=== PATIENT | female | born 2000 | race Caucasian/White ===

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

== ENCOUNTER 2024-08-02 13:34 | Outpatient (CLI) | payer BC, SELFPAY ==
--- NOTE | ~2024-08-02 | US_ITS ---
Right maxillary ULTRASOUND (Doppler ultrasound interrogation techniques used as needed for this exam. ) Ordering provider: Melanie Hilton, [employer] History: . Mass of R axilla . Comparison: None. FINDINGS/impression: Lymph node is seen in the right axilla measuring 0.6 x 0.3 x 0.4 cm. Reviewed, dictated and finalized at location A.
== END 2024-08-02 13:35 | disposition home or self-care (01) ==
LOC: MICIMG 13:37
PROVIDERS: PCP Nurse Practitioner; Visit Provider Nurse Practitioner
DX: R22.31 Localized swelling, mass and lump, right upper limb (principal)
CPT/HCPCS: 76882

== ENCOUNTER 2025-02-17 12:07 | Emergency (ER) | payer BC, SELFPAY ==
[2025-02-17] VITALS (12 sets, daily range): BP systolic 106–116; BP diastolic 69–76; PULSE 93–124; RESP 12–22; TEMP 36.4; O2SAT 99–100
--- NOTE | ~2025-02-17 | XR_ITS ---
Examination: XR chest 2V Clinical History: cp, sob, dizziness Comparison: None Technique: PA and Lateral Findings: Cardiomediastinal silhouette normal size and configuration. Lungs clear. No acute bony abnormality. IMPRESSION: 1. No acute cardiopulmonary findings. Reviewed, dictated and finalized at location R. [facility]
--- OUTSIDE RECORDS SUMMARY | 2025-02-17 12:10 | XMS_ITS | Continuity of Care Document ---
Author Organization [facility] [address] [place] [address] Care Team Providers Care Powder Coater Name Role Phone KURT LEI Primary Care Provider Assessment No assessment recorded. Plan of Treatment Reminders Order Date Submit Date Provider Last Modified By Organization Details Last Modified Time Details Appointments OB ROUTINE 2024 04:30P Evelyn PÉREZ MD Not available Not available Not available OB ROUTINE 2024 02:00P Evelyn BUNDY MD Not available Not available Not available OB ROUTINE 2025 04:15P Evelyn BUNDY MD Not available Not available Not available Lab None recorded . Referral None recorded . Procedures None recorded . Surgeries None recorded . Imaging None recorded . Medication Orders None recorded . Patient TargetsNo targets recorded. Patient InstructionsNo instructions recorded. Reason for Referral None Reported. Results Created Date Observation Date Name Description Value Unit Range Abnormal Flag Note LastModifiedBy Organization Detail LastModifiedTime 10/02/1910/01/2024 CULTU RE: URINE result report SEE RESULT S BELOW Test: Cultu re: Urine Speci men Sourc e: Urine - Clean Catch Speci men Type: Urine Speci men Date: 2024 1653 Resul t Date: 2024 2241 Resul t Statu s: Final resul t Abnor mal: No Resul ting Lab: [facility] [address] [facility] [address] Tel: CULTU RE ----- ----- ----- --- No growt h in 1 day (dete ction level of 10,00 0 colon ies / ml.) Not Available [facility] (Lab) [address], [place], [address], 10/02/2024 23:45:23 10/02/19 25 10/01/2024 drug scree n, urine Amphetamines : negati ve Not Available [facility] [address], [place], [address], 10/01/2024 18:02:01 10/02/19 25 10/01/2024 drug scree n, urine Cannabinoids : negati ve Not Available [facility] [address], [place], [address], 10/01/2024 18:02:01 10/02/19 25 10/01/2024 drug scree n, urine Cocaine: negati ve Not Available [facility] [address], [place], [address], 10/01/2024 18:02:01 10/02/19 25 10/01/2024 drug scree n, urine Opiates: negati ve Not Available [facility] [address], [place], [address], 10/01/2024 18:02:01 10/02/19 25 10/01/2024 drug scree n, urine Phenocyclidi ne: negati ve Not Available [facility] [address], [place], [address], 10/01/2024 18:02:01 10/02/19 25 10/01/2024 drug scree n, urine Barbiturates : negati ve Not Available [facility] [address], [place], [address], 10/01/2024 18:02:01 10/02/19 25 10/01/2024 drug scree n, urine Benzodiazepi harvinder: negati ve Not Available [facility] [address], [place], [address], 10/01/2024 18:02:01 10/02/19 25 10/01/2024 drug scree n, urine Ethanol: negati ve Not Available [facility] [address], [place], [address], 10/01/2024 18:02:01 10/02/19 25 10/01/2024 drug scree n, urine Hallucinogen s: negati ve Not Available [facility] [address], [place], [address], 10/01/2024 18:02:01 10/02/19 25 10/01/2024 drug scree n, urine Inhalants: negati ve Not Available [facility] [address], [place], [address], 10/01/2024 18:02:01 10/02/19 25 10/01/2024 drug scree n, urine Anabolic Steroids: negati ve Not Available [facility] [address], [place], [address], 10/01/2024 18:02:01 10/02/19 25 10/01/2024 drug scree n, urine Other: negati ve Not Available [facility] [address], [place], [address], 10/01/2024 18:02:01 11/15/19 25 11/14/2024 CBC W/DIF F WBC 8.8 10'3/ uL 3.5-10 .5 Not Available [facility] (Lab) [address], [place], [address], 11/15/2024 09:55:48 11/15/1911/14/2024 CBC W/DIF F RBC 3.26 10'6/ uL (based on docume nted legal sex) 3.80-5 .20 low Not Available [facility] (Lab) [address] [place], [address], 11/15/2024 09:55:48 11/15/1911/14/2024 CBC W/DIF F HGB 10.2 g/dL (based on docume nted legal sex) 11.6-1 5.4 low Not Available [facility] (Lab) [address] [facility], [place], [address], 11/15/2024 09:55:48 11/15/1911/14/2024 CBC W/DIF F HCT 31.0 % (based on docume nted legal sex) 34.0-4 5.0 low Not Available [facility] (Lab) [address], [place], [address], 11/15/2024 09:55:48 11/15/1911/14/2024 CBC W/DIF F MCV 95.1 fL 80.0-9 9.0 Not Available [facility] (Lab) [address] [facility], [place], [address], 11/15/2024 09:55:48 11/15/1911/14/2024 CBC W/DIF F MCH 31.3 pg 27.0-3 4.0 Not Available [facility] (Lab) [address], [place], [address], 11/15/2024 09:55:48 11/15/1911/14/2024 CBC W/DIF F MCHC 32.9 g/dL 32.0-3 5.5 Not Available [facility] (Lab) [address] [facility], [place], [address], 11/15/2024 09:55:48 11/15/1911/14/2024 CBC W/DIF F RDW 13.2 % 11.0-1 5.0 Not Available [facility] (Lab) [address] [facility], [place], [address], 11/15/2024 09:55:48 11/15/1911/14/2024 CBC W/DIF F plt 261 10'3/ uL 150-40 0 Not Available [facility] (Lab) [address], [place], [address], 11/15/2024 09:55:48 11/15/1911/14/2024 CBC W/DIF F MPV 11.6 fL 8.8-12 .1 Not Available [facility] (Lab) [address], [place], [address], 11/15/2024 09:55:48 11/15/1911/14/2024 CBC W/DIF F NRBC's 0.0 % 0.0 Not Available [facility] (Lab) [address], [place], [address], 11/15/2024 09:55:48 11/15/1911/14/2024 CBC W/DIF F absolute NRBCs 0.0 10'3/ uL no refere nce range establ ished Not Available [facility] (Lab) [address], [place], [address], 11/15/2024 09:55:48 11/15/1911/14/2024 CBC W/DIF F neutrophils 79.2 % 34.0-7 3.0 high Not Available [facility] (Lab) [address], [place], [address], 11/15/2024 09:55:48 11/15/1911/14/2024 CBC W/DIF F lymphocytes 13.4 % 15.0-5 0.0 low Not Available [facility] (Lab) [address], [place], [address], 11/15/2024 09:55:48 11/15/1911/14/2024 CBC W/DIF F monocytes 5.9 % 1.0-15 .0 Not Available [facility] (Lab) [address], [place], [address], 11/15/2024 09:55:48 11/15/19 25 11/14/2024 CBC W/DIF F eosinophils 0.9 % 0.0-8. 0 Not Available [facility] (Lab) [address], [place], [address], 11/15/2024 09:55:48 11/15/19 25 11/14/2024 CBC W/DIF F basophils 0.3 % 0.0-2. 0 Not Available [facility] (Lab) [address], [place], [address], 11/15/2024 09:55:48 11/15/1911/14/2024 CBC W/DIF F immature granulocytes 0.3 % no define d refere nce range Immat ure Granu locyt es (IG) repre sents autom ated enume ratio n of Metam yeloc ytes, Myelo cytes and Promy elocy sendy when IG is < 5%. Blast s are not inclu ded in IG and repor henry separ ately if prese nt. Not Available [facility] (Lab) [address], [place], [address], 11/15/2024 09:55:48 11/15/19 25 11/14/2024 CBC W/DIF F absolute neutrophils 7.0 10'3/ uL 1.5-8. 0 Not Available [facility] (Lab) [address], [place], [address], 11/15/2024 09:55:48 11/15/1911/14/2024 CBC W/DIF F absolute lymphocytes 1.2 10'3/ uL 1.0-4. 0 Not Available [facility] (Lab) [address] [place], [address], 11/15/2024 09:55:48 11/15/19 25 11/14/2024 CBC W/DIF F absolute monocytes 0.5 10'3/ uL 0.2-1. 0 Not Available [facility] (Lab) [address], [place], [address], 11/15/2024 09:55:48 11/15/1911/14/2024 CBC W/DIF F absolute eosinophils 0.1 10'3/ uL 0.0-0. 6 Not Available [facility] (Lab) [address] [facility], [place], [address], 11/15/2024 09:55:48 11/15/1911/14/2024 CBC W/DIF F absolute basophils 0.0 10'3/ uL 0.0-0. 3 Not Available [facility] (Lab) [address] [facility], [place], [address], 11/15/2024 09:55:48 11/15/1911/14/2024 CBC W/DIF F absolute immature granulocytes 0.0 10'3/ uL 0.00-0 .10 Refer ence range s for nonbi nary/ inter sex or unspe cifie d gende r patie nts have not been estab lishe d. Pleas e refer to the follo wing table for range s estab lishe d for cisge nder patie nts and evalu ate in the clini mildred xavier xt of the indiv idual patie nt: https ://mary kay foster book. nm.or g/gen derx Not Available [facility] (Lab) [address] [facility], [place], [address], 11/15/2024 09:55:48 11/15/1911/14/2024 HEPAT ITIS B SURFA CE ANTIG EN hepatitis B surface antigen Non-re active non-re active This assay was perfo rmed using [employer] ratio n reage nts and test kits. Value s obtai christine with other assay metho ds or kits canno t be used inter laughlin eably . Not Available [facility] (Lab) [address] [facility], [place], [address], 11/15/2024 09:55:48 11/15/1911/14/2024 HIV 1/2 ANTIG EN/AN TIBOD Y, REFLE X CONFI RMATI ON HIV antigen/anti body Nonrea ctive nonrea ctive HIV-1 antig en and HIV-1 /HIV- 2 antib odies were not detec henry. No labor atory evide nce of HIV infec tion. Not Available [facility] (Lab) [address] [facility], [place], [address], 11/15/2024 09:55:49 11/15/1911/14/2024 HEPAT ITIS C ANTIB MARGARITA SCREE N, REFLE X TO CONFI RMATI ON hepatitis C antibody Non-re active non-re active Antib odies to HCV Not Detec henry, does not exclu de the possi bilit y of expos ure to HCV. Not Available [facility] (Lab) [address] [facility], [place], [address], 11/15/2024 09:55:49 11/15/1911/14/2024 RUBEL LA IGG ANTIB MARGARITA, QUANT rubella antibodies, IgG Reacti ve reacti ve Not Available [facility] (Lab) [address] [facility], [place], [address], 11/15/2024 09:55:50 11/15/1911/14/2024 RUBEL LA IGG ANTIB MARGARITA, QUANT rubella antibodies, IgG quant 17.5 IU/mL >=10 Non-r eacti ve (Non- Immun e) <10 IU/mL React pat (Immu ne) > or = 10 IU/mL Not Available [facility] (Lab) [address] [place], [address], 11/15/2024 09:55:50 11/15/1911/14/2024 HEMOG LOBIN A1C hemoglobin A1C 5.0 % 4.0-5. 6 The Ameri can Diabe sendy [employer]oc iatio n recom mends that a prima ry goal of thera kenneth mart be a HBA1C of < 7% and that physi ciajenniffer talbert d reeva luate the treat ment regim en in patie nts with HBA1C value s consi stent ly > 8%. <5.7% Luann l 5.7 - 6.4% Incre ased risk for diabe sendy >=6.5 % Diagn ostic of diabe sendy <7.0% Goal of thera py >8.0% Actio n sugge sted Not Available [facility] (Lab) [address] [facility], [place], [address], 11/15/2024 09:55:50 11/15/19 25 11/14/2024 TYPE/ RH/SC REEN ABO/Rh type A NEG Not Available [facility] (Lab) [address] [facility], [place], [address], 11/15/2024 09:55:50 11/15/1911/14/2024 TYPE/ RH/SC REEN antibody screen NEG Not Available [facility] (Lab) [address] [facility], [place], [address], 11/15/2024 09:55:50 11/15/19 25 11/14/2024 TYPE/ RH/SC REEN exp date 2024 23:59 Not Available [facility] (Lab) [address] [facility], [place], [address], 11/15/2024 09:55:50 11/15/19 25 11/14/2024 RPR SCREE N, REFLE X TITER /CONF IRMAT ION RPR qualitative Nonrea ctive nonrea ctive Not Available [facility] (Lab) [address] [facility], [place], [address], 11/15/2024 09:55:51 02/07/20 25 02/06/2025 MILTON TIN / IRON / TRANS MILTON N / TIBC iron 99 ug/dL 40-170 Not Available [facility] (Lab) [address] [facility], [place], [address], 02/07/2025 04:27:48 02/07/20 25 02/06/2025 MILTON TIN / IRON / TRANS MILTON N / TIBC transferrin 345 mg/dL 200-36 0 Not Available [facility] (Lab) [address] [facility], [place], [address], 02/07/2025 04:27:48 02/07/20 25 02/06/2025 MILTON TIN / IRON / TRANS MILTON N / TIBC ferritin 12.6 NG/mL 8.0-25 2.0 Not Available [facility] (Lab) [address] [facility], [place], [address], 02/07/2025 04:27:48 02/07/20 25 02/06/2025 MILTON TIN / IRON / TRANS MILTON N / TIBC TIBC 483 ug/dL 250-45 0 high Not Available [facility] (Lab) [address] [facility], [place], [address], 02/07/2025 04:27:48 02/07/20 25 02/06/2025 MILTON TIN / IRON / TRANS MILTON N / TIBC iron saturation 20 % 20-55 Not Available [facility] (Lab) [address] [place], [address], 02/07/2025 04:27:48 10/02/19 25 10/02/2024 US, obste tric, nucha l trans lucen cy No observ ation record ed. [email or web address] [facility] [address], [place], [address], 10/02/2024 13:10:46 10/02/19 25 10/02/2024 US, obstnella tric, 1st trime ster No observ ation record ed. [email or web address] [facility] [address], [place], [address], 10/02/2024 13:10:55 10/02/19 25 10/01/2024 US, obste tric, nucha l trans lucen cy No observ ation record ed. Marly [address], [place], [address], 10/05/2024 09:46:48 11/27/1911/26/2024 US, obste tric, 2nd or 3rd trime ster No observ ation record ed. [email or web address] [facility] [address], [place], [address], 11/26/2024 18:13:04 11/27/19 25 11/26/2024 US, obste tric, 2nd or 3rd trime ster No observ ation record ed. [email or web address] [address], [place], [address], 11/26/2024 18:15:16 11/27/19 25 11/26/2024 US, obste tric, 2nd or 3rd trime ster No observ ation record ed. [email or web address] [address] [address], [place], [address], 11/27/2024 21:27:34 12/25/19 25 12/24/2024 US, obste tric, follo w-up No observ ation record ed. [email or web address] [facility] [address], [place], [address], 12/24/2024 12:42:38 12/25/19 25 12/24/2024 US, obste tric, follo w-up No observ ation record ed. [email or web address] [address] [address], [place], [address], 12/25/2024 12:27:01 Result Notes None recorded. Problems Name Problem SNOMED Code Status Onset Date Resolution Date Notes Provider Name and Address Organization Details Recorded Time 27881380 Active 2024 DAYRON dejesus [place] - [facility] 17:34:37 Congenita l pyloric stenosis 256199127 Active 2024 s/p repair KIRAN BUNDY MD [address], [place], [address], [facility] 17:52:32 Problem Notes None recorded. Procedures Surgical History Date Name Laterality Status Provider Name and Address Organization Details Recorded Time 10/18/19 24 Date of Last Pap Smear completed DAYRON Calles [facility] 10/01/2024 17:34:02 03/14/19 15 Orthopedic Surgery completed Zoya Ward [facility] 10/13/2023 09:42:07 03/14/19 09 Tonsillectomy completed Zoya Ward [facility] 10/13/2023 09:42:00 10/13/19 03 dilation of pyloric stricture completed LENNY Butt [address], [place], [address], [facility] 10/13/2023 10:02:07 Imaging Results None recorded. Procedure Notes None recorded. Medical Equipment None Reported. Allergies Allergen ID Allergen Name Allergen Category Reaction Reaction Severity Criticality Documentation Date Start Date Code Code System Note Provider Name and Address Organization Details Recorded Time 78026 cat's claw preparati on medicatio n eye redness mild Not available 08/01/2024 39902 3 RxNorm Phoebe dejesus [facility] 09:15:09 Medications Name Sig Start Date Stop Date Status Note LastModified by Organization Details LastModified Time ondansetron 4 mg disintegrati ng tablet Place 1 tablet every 6 hours by translingua l route as needed. 2024 active Not Available Not Available Not Avai lable ferrous sulfate active Not Available Not Available Not Available + DHA active Not Available Not Available Not Available Vitals Date Recorded Body height Body mass index (BMI) Body weight Systolic And Diastolic Provider Name and Address Organization Details Last Updated DateTime 02/06/2025 157.48 cm 33.1 kg/m2 12345.22 g 100/69 mm[Hg] Donna Hopkins [facility] 02/06/2025 10:43:52 Social History Question Answer Notes LastModified by Organizat ion Details LastModified Time Tobacco Smoking Status Never Smoker Phoebe Meyers [facility] 08/01/2024 09:18:14 Do You Have An Advance Directive? No Information n ot available 08/01/2024 Are You Blind Or Do You Have Difficulty Seeing? No Information n ot available 10/13/2023 What Is Your Level Of Caffeine Consumption? Occasional [email or web address] Information not available 09/03/2024 How Much Tobacco Do You Chew? None [email or web address] Information not available 10/13/2023 In The 14 Days Before Symptom Onset, Have You Had Close Contact With A Laboratory-confirm ed COVID-19 While That Case Was Ill? No [email or web address] Information n ot available 10/13/2023 In The 14 Days Before Symptom Onset, Have You Had Close Contact With A Person Who Is Under Investigation For COVID-19 While That Person Was Ill? No [email or web address] Information not available 10/13/2023 Have You Been To An Area Known To Be High Risk For COVID-19? No [email or web address] Information not available 10/13/2023 Are You Deaf Or Do You Have Serious Difficulty Hearing? No [email or web address] Information not available 10/13/2023 What Type Of Diet Are You Following? REGULAR Information n ot available 10/13/2023 What Is The Highest Grade Or Level Of School You Have Completed Or The Highest Degree You Have Received? [id number] [email or web address] Information not available 08/01/2024 Are There Any Guns Present In Your Home? Yes [email or web address] Information not available 10/01/2024 Do You Use Protection During Sex? Usually [email or web address] Information not available 08/01/2024 Do You Use Your Seat Belt Or Car Seat Routinely? Yes [email or web address] Information not available 10/13/2023 Do You Have Smoke And Carbon Monoxide Detectors In Your Home? Yes [email or web address] Information not available 10/13/2023 How Much Tobacco Do You Smoke? No [email or web address] Information not available 10/13/2023 Do You Use Sunscreen Routinely? Yes Information not available 10/13/2023 Have You Used IV Drugs? No [email or web address] Information not available 10/13/2023 Do You Have Difficulty Walking Or Climbing Stairs? No [email or web address] Information not available 10/13/2023 Sex: Unknown Functional Status Question Answer Note LastModified by Organizat ion Details LastModified Time Do you use any illicit or recreational drugs? No [email or web address] Information not available 10/13/2023 What is your level of alcohol consumption? None [email or web address] Information not available 10/13/2023 Are you able to walk independently without assistance or assistive devices? YESWOREST [email or web address] Information not available 10/13/2023 Are you able to care for yourself independently? 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 No [email or web address] Information not available 10/13/2023 What is your exercise level? Moderate [email or web address] Information not available 10/13/2023 Mental Status Question Answer Note LastModified by Organization D etails LastModified Time Do you feel stressed (tense, restless, nervous, or anxious, or unable to sleep at night)? [id number] [email or web address] Information not available 10/01/2024 Family History Relationship Description Onset Age of this Age Resolved Age Notes LastModified by Organization Details LastModified Time Mother Polycystic ovary syndrome [email or web address] Not available 2023 09:40:21 Medical History Condition Response Allergies (Food, seasonal, environmental ) N Other N Breast Cancer N Drug/Latex Allergies/Reactions N Blood Transfusion N Lung Disease N Dermatologic Disorders N Defects or Inherited Disease N Breast Problem N Gestational Diabetes N Hematologic disorders N Anesthesia Complications N History of STI N Deep Vein Thrombosis N Polycystic ovary syndrome N Anxiety Disorder N Autoimmune disease N Arthritis N Infertility N Polyps N Acid Reflux (GERD) N History of abnormal pap N Cancer N Stroke N Varicosities N Neurologic/Epilepsy N Endometriosis N High Cholesterol N Headaches N Fibromyalgia N Kidney Disease N Heart Problems N Kidney or Bladder Problems N Thyroid Problems N GI Problems N Eating Disorder N Anemia Y Art (IVF or FET) N Psychiatric Illness N Ovarian Cancer N Diabetes N Pulmonary (TB, Asthma) N Hepatitis/Liver Disease N No Past Medical History N Eczema N Urinary Tract Infection N Abuse/Domestic Violence N Asthma N Trauma/Violence N Depression/ depression N Heart Disease N Pre-Eclampsia N Hypertension N Osteoporosis N Thrombophilias N Gynecological History Statement/Question Response Date of LMP 07/07/2024 On BCP's at Conception? N N Was last menstrual period normal Y STIs/STDs N HPV Vaccine Y Duration of Flow (days) 5 Current Control Method Are cycles usually normal Y Date of Last Colonoscopy Frequency of Cycle (Q days) 29 Sexually Active? Y Condoms Menses Monthly Y Date of DEXA bone scan Age of first menstrual cycle 12 Date of Last Pap Smear 10/18/2023 Sexual Problems? N Desired Control Method None LMP Definite N Obstetrics History GPAL:G 1 P 0 0 0 0 Past Encounters Encounter ID Performer Location Encounter Start Date Encounter Closed Date Diagnosis/Indication Diagnosis SNOMED-CT Code Diagnosis ICD10 Code Diagnosis IMO Codes Diagnosis Note [id number] KIRAN BUNDY MD [facility] [address] [address] 01/22/2025 10:01:34 01/22/2025 11:19:39 Third trimester 71945735 Z34.03 [id number] KIRAN BUNDY MD [facility] [address] [address] 02/06/2025 10:29:19 02/06/2025 11:01:57 Third trimester 70587458 Z34.03 [id number] Health Concerns Section Related Observation LastModified by Organization Detai ls LastModified Time None Recorded Concern Status LastModified by Organization Details LastModified Time None Recorded Payers Encounter Date Sequence Insurance Name Policy Number Policy Godinez Covered Member ID Godinez Member ID Guarantor Name 02/06/2025 1 [employer] [id number] Richard Almonte [id number] Phoebe lAmonte Notes Date Note Type Note Provider Name and Address Organization Details Recorded Time 02/06/2025 text/html Generic HPI TemplateReported by Patient KIRAN BUNDY MD [address], [place], [address], [facility] 02/06/2025 11:00:48 OBGyn Episode Ob Episode Information Episode Created Date Number of Fetuses Patient Bloodtype Patient rh Status Prepregnancy Weight lbs Domestic Partner Domestic Partner Phone Father Name Unit Control Clerk Status 10/02/19 25 1 A Negative OPEN Fetus Data First Name Last Name Admitted to NICU Weight (g) Sex Living Outcome Pediatric Complications Fetus ID Race Codes Race Delivery Type [id number] Problems Problem Notes Problem Name Start Date End Date Resolution Snomed Code Not e Congenital pyloric stenosis 10/01/2024 [id number] s/p re pair Jason Calculation Initial Jason Date Initial Exam Date Initial Exam Provider Initial Ultrasound Date Last Menstrual Period Date Ultra Sound Weeks Gestation 04/13/2025 10/01/2024 10/01/2024 07/07/2024 12 Eighteen To Twenty Week Jason Update Ultra Sound Date Fundal Height At Umbil Quickening Date Ultra Sound Latest Weeks Gestation Final Jason Confirmed By Final Jason Confirmed Date Final Jason Date Ultra Sound Latest Days Gestation 0 [email or web address] 10/01/2024 04/13/19 26 0 Pre-dana Flowsheet Flowsheet Date 10/01/2024 Gonsalez Score Blood Edema Fundus Height Fundus Units Glucose Ketones Leukocytes Nitrite Labor Signs Protein Cervic Dilation Cervic Effacement Cervic Station Type Weight in lbs Pre/Post Dialysis Refused BP Diastolic BP Location Tested BP Systolic BP Type Fetus Heart Rate Present Fetus Movement Comments Flowsheet Date 10/01/2024 Gonsalez Score Blood Edema Fundus Height Fundus Units Glucose Ketones Leukocytes Nitrite Labor Signs Protein Cervic Dilation Cervic Effacement Cervic Station Type Weight in lbs Pre/Post Dialysis Refused Weight [id number] BP Diastolic BP Location Tested BP Systolic BP Type 66 L arm 99 sitting Fetus Heart Rate Present A Present Fetus Movement Comments Patient presents to [facility] care. Hx of pyloric stenosis repair as a child. otherwise uncomplicated. No bleeding or cramping. Nausea improved with zofran. NT/NB wnl today, declines NIPT. Will draw new OB labs today. RTC 4 weeks for routine care. Flowsheet Date 11/14/2024 Gonsalez Score Blood Edema Fundus Height Fundus Units Glucose Ketones Leukocytes Nitrite Labor Signs Protein Cervic Dilation Cervic Effacement Cervic Station Type Weight in lbs Pre/Post Dialysis Refused Weight 164.624663147030 BP Diastolic BP Location Tested BP Systolic BP Type 75 L arm 114 sitting Fetus Heart Rate Present A 150 Fetus Movement A Yes Comments Doing well, good movem ent. No cramping or bleeding. Labs completed today. Discussed anatomy US for next visit. RTC 2 weeks. Flowsheet Date 11/26/2024 Gonsalez Score Blood Edema Fundus Height Fundus Units Glucose Ketones Leukocytes Nitrite Labor Signs Protein Cervic Dilation Cervic Effacement Cervic Station Type Weight in lbs Pre/Post Dialysis Refused BP Diastolic BP Location Tested BP Systolic BP Type Fetus Heart Rate Present Fetus Movement Comments Flowsheet Date 11/26/2024 Gonsalez Score Blood Edema Fundus Height Fundus Units Glucose Ketones Leukocytes Nitrite Labor Signs Protein Cervic Dilation Cervic Effacement Cervic Station Type Weight in lbs Pre/Post Dialysis Refused 165.608065034344 BP Diastolic BP Location Tested BP Systolic BP Type 67 L arm 100 sitting Fetus Heart Rate Present A Present Fetus Movement A Yes Comments Good movement. No cram ping or bleeding. Having some left sided sciatica pain, discussed stretches. EFw 82%, anatomy incomplete, need nose/lips. Repeat in 4 weeks. RTC 4 weeks. Flowsheet Date 12/24/2024 Gonsalez Score Blood Edema Fundus Height Fundus Units Glucose Ketones Leukocytes Nitrite Labor Signs Protein Cervic Dilation Cervic Effacement Cervic Station Type Weight in lbs Pre/Post Dialysis Refused BP Diastolic BP Location Tested BP Systolic BP Type Fetus Heart Rate Present Fetus Movement Comments Flowsheet Date 12/24/2024 Gonsalez Score Blood Edema Fundus Height Fundus Units Glucose Ketones Leukocytes Nitrite Labor Signs Protein Cervic Dilation Cervic Effacement Cervic Station Type Weight in lbs Pre/Post Dialysis Refused Weight 173.408475334110 BP Diastolic BP Location Tested BP Systolic BP Type 73 L arm 110 sitting Fetus Heart Rate Present A 156 Present Fetus Movement A Yes Comments no complaints, no problems, routine care, no contractions, no vaginal bleeding, no loss of fluid, no cramping. Flowsheet Date 01/22/2025 Gonsalez Score Blood Edema Fundus Height Fundus Units Glucose Ketones Leukocytes Nitrite Labor Signs Protein Cervic Dilation Cervic Effacement Cervic Station Type Weight in lbs Pre/Post Dialysis Refused 175.549078934518 BP Diastolic BP Location Tested BP Systolic BP Type 70 L arm 103 sitting Fetus Heart Rate Present A 140 Fetus Movement A Yes Comments Doing well, no issues. Anato my complete, EFW 70%. Would like natural childbirth, discussed classes. Orders given for GCT and labs. RTC 2 weeks. Flowsheet Date 02/06/2025 Gonsalez Score Blood Edema Fundus Height Fundus Units Glucose Ketones Leukocytes Nitrite Labor Signs Protein Cervic Dilation Cervic Effacement Cervic Station Type Weight in lbs Pre/Post Dialysis Refused Weight 181.185509385897 BP Diastolic BP Location Tested BP Systolic BP Type 69 L arm 100 sitting Fetus Heart Rate Present A 155 Fetus Movement A Yes Comments Good movement. No cram ping or bleeding. GCT and labs wnl aside from anemia with Hgb 9.7. Iron studies today. RTC 2 weeks. Menstrual History Last Menstrual Date Menses Monthly On Bcp Conception Prior Menses Frequency Hcg Plus Date Menarche Onset Age 0407/07/2022 Delivery Information Delivery Date Delivery Type Labor Anesthesia Weeks Gestation Incision Type Labor Labor Length Hrs Delivered By Post Complications Tubal Sterilization Discharge Date Comments Discharge Information Feeding Method Contraceptive Method Maternal HG B and HCT Levels
--- OUTSIDE RECORDS SUMMARY | 2025-02-17 12:10 | XMS_ITS | Data Portability ---
Author Organization [facility] Address [address] [place] [address] [place] [address] Care Team Providers Care Pattern Hanger Name Role Phone KURT LEI Primary Care Provider Assessment Encounter Date Assessment Date Assessment LastModified by Organization Details LastModified Time 12/24/2024 12/24/2024 Patient is ___weeks . Discussed plan. [email or web address] Not available 12/24/2024 12:01:27 Plan of Treatment Reminders Order Date Submit Date Provider Last Modified By Organization Details Last Modified Time Details Appointments OB ROUTINE 2024 04:30P Evelyn GALLOWAY MD Not available Not available Not available OB ROUTINE 2024 02:00P Evelyn BUNDY MD Not available Not available Not available OB ROUTINE 2025 04:15P Evelyn BUNDY MD Not available Not available Not available Lab None recorded. Referral None recorded. Procedures None recorded. Surgeries None recorded. Imaging US, obstetric , follow-up 2024 025 [email or web address] [address], [address], [place], [address], 12/24/2024 16:42:55 US, obstetric , 2nd or 3rd trimester 2024 025 [address], [address], [place], [address], 11/26/2024 17:40:11 Medication Orders None recorded. Patient TargetsNo targets recorded. Patient InstructionsNo instructions recorded. Reason for Referral None Reported. Results Created Date Observation Date Name Description Value Unit Range Abnormal Flag Note LastModifiedBy Organization Detail LastModifiedTime 11/15/1911/14/2024 CBC W/DIF F WBC 8.8 10'3/ uL 3.5-10 .5 Not Available [facility] (Lab) [address], [place], [address], 11/15/2024 09:55:48 11/15/1911/14/2024 CBC W/DIF F RBC 3.26 10'6/ uL (based on docume nted legal sex) 3.80-5 .20 low Not Available [facility] (Lab) [address], [place], [address], 11/15/2024 09:55:48 11/15/1911/14/2024 CBC W/DIF F HGB 10.2 g/dL (based on docume nted legal sex) 11.6-1 5.4 low Not Available [facility] (Lab) [address], [place], [address], 11/15/2024 09:55:48 11/15/1911/14/2024 CBC W/DIF F HCT 31.0 % (based on docume nted legal sex) 34.0-4 5.0 low Not Available [facility] (Lab) [address], [place], [address], 11/15/2024 09:55:48 11/15/1911/14/2024 CBC W/DIF F MCV 95.1 fL 80.0-9 9.0 Not Available [facility] (Lab) [address] [place], [address], 11/15/2024 09:55:48 11/15/1911/14/2024 CBC W/DIF F MCH 31.3 pg 27.0-3 4.0 Not Available [facility] (Lab) [address] [place], [address], 11/15/2024 09:55:48 11/15/1911/14/2024 CBC W/DIF F MCHC 32.9 g/dL 32.0-3 5.5 Not Available [facility] (Lab) [address], [place], [address], 11/15/2024 09:55:48 11/15/1911/14/2024 CBC W/DIF F RDW 13.2 % 11.0-1 5.0 Not Available [facility] (Lab) [address], [place], [address], 11/15/2024 09:55:48 11/15/1911/14/2024 CBC W/DIF F plt 261 10'3/ uL 150-40 0 Not Available [facility] (Lab) [address], [place], [address], 11/15/2024 09:55:48 11/15/1911/14/2024 CBC W/DIF F MPV 11.6 fL 8.8-12 .1 Not Available [facility] (Lab) [address], [place], [address], 11/15/2024 09:55:48 11/15/1911/14/2024 CBC W/DIF F NRBC's 0.0 % 0.0 Not Available [facility] (Lab) [address], [place], [address], 11/15/2024 09:55:48 11/15/1911/14/2024 CBC W/DIF F absolute NRBCs 0.0 10'3/ uL no refere nce range establ ished Not Available [facility] (Lab) [address], [place], [address], 11/15/2024 09:55:48 11/15/1911/14/2024 CBC W/DIF F neutrophils 79.2 % 34.0-7 3.0 high Not Available [facility] (Lab) [address], [place], [address], 11/15/2024 09:55:48 11/15/19 25 11/14/2024 CBC W/DIF F lymphocytes 13.4 % 15.0-5 0.0 low Not Available [facility] (Lab) [address], [place], [address], 11/15/2024 09:55:48 11/15/19 25 11/14/2024 CBC W/DIF F monocytes 5.9 % 1.0-15 .0 Not Available [facility] (Lab) [address] [facility], [place], [address], 11/15/2024 09:55:48 11/15/1911/14/2024 CBC W/DIF F eosinophils 0.9 % 0.0-8. 0 Not Available [facility] (Lab) [address] [facility], [place], [address], 11/15/2024 09:55:48 11/15/1911/14/2024 CBC W/DIF F basophils 0.3 % 0.0-2. 0 Not Available [facility] (Lab) [address] [facility], [place], [address], 11/15/2024 09:55:48 11/15/1911/14/2024 CBC W/DIF F immature granulocytes 0.3 % no define d refere nce range Immat ure Granu locyt es (IG) repre sents autom ated enume ratio n of Metam yeloc ytes, Myelo cytes and Promy elocy sendy when IG is < 5%. Blast s are not inclu ded in IG and repor henry separ ately if prese nt. Not Available [facility] (Lab) [address] [facility], [place], [address], 11/15/2024 09:55:48 11/15/19 25 11/14/2024 CBC W/DIF F absolute neutrophils 7.0 10'3/ uL 1.5-8. 0 Not Available [facility] (Lab) [address] [facility], [place], [address], 11/15/2024 09:55:48 11/15/1911/14/2024 CBC W/DIF F absolute lymphocytes 1.2 10'3/ uL 1.0-4. 0 Not Available [facility] (Lab) [address] [facility], [place], [address], 11/15/2024 09:55:48 11/15/1911/14/2024 CBC W/DIF F absolute monocytes 0.5 10'3/ uL 0.2-1. 0 Not Available [facility] (Lab) [address] [facility], [place], [address], 11/15/2024 09:55:48 11/15/1911/14/2024 CBC W/DIF F absolute eosinophils 0.1 10'3/ uL 0.0-0. 6 Not Available [facility] (Lab) [address] [facility], [place], [address], 11/15/2024 09:55:48 11/15/1911/14/2024 CBC W/DIF F absolute basophils 0.0 10'3/ uL 0.0-0. 3 Not Available [facility] (Lab) [address] [facility], [place], [address], 11/15/2024 09:55:48 11/15/1911/14/2024 CBC W/DIF F absolute immature granulocytes 0.0 10'3/ uL 0.00-0 .10 Refer ence range s for nonbi nary/ inter sex or unspe cifie d gende r patie nts have not been estab lishe d. Pletravis e refer to the carloso wing table for range s estab lishe d for cisge nder patie nts and evalu ate in the clini mildred xavier xt of the indiv idual patie nt: https ://mary kay foster book. nm.or g/gen derx Not Available [facility] (Lab) [address] [facility], [place], [address], 11/15/2024 09:55:48 11/15/19 25 11/14/2024 HEPAT ITIS B SURFA CE ANTIG EN hepatitis B surface antigen Non-re active non-re active This assay was perfo rmed using [employer] ratio n reage nts and test kits. Value s obtai christine with other assay metho ds or kits canno t be used inter laughlin eably . Not Available [facility] (Lab) [address], [place], [address], 11/15/2024 09:55:48 11/15/1911/14/2024 HIV 1/2 ANTIG EN/AN TIBOD Y, REFLE X CONFI RMATI ON HIV antigen/anti body Nonrea ctive nonrea ctive HIV-1 antig en and HIV-1 /HIV- 2 antib odies were not detec henry. No labor atory evide nce of HIV infec tion. Not Available [facility] (Lab) [address], [place], [address], 11/15/2024 09:55:49 11/15/1911/14/2024 HEPAT ITIS C ANTIB MARGARITA SCREE N, REFLE X TO CONFI RMATI ON hepatitis C antibody Non-re active non-re active Antib odies to HCV Not Detec henry, does not exclu de the possi bilit y of expos ure to HCV. Not Available [facility] (Lab) [address] [place], [address], 11/15/2024 09:55:49 11/15/1911/14/2024 RUBEL LA IGG ANTIB MARGARITA, QUANT rubella antibodies, IgG Reacti ve reacti ve Not Available [facility] (Lab) [address] [facility], [place], [address], 11/15/2024 09:55:50 11/15/19 25 11/14/2024 RUBEL LA IGG ANTIB MARGARITA, QUANT rubella antibodies, IgG quant 17.5 IU/mL >=10 Non-r eacti ve (Non- Immun e) <10 IU/mL React pat (Immu ne) > or = 10 IU/mL Not Available [facility] (Lab) [address] [facility], [place], [address], 11/15/2024 09:55:50 11/15/19 25 11/14/2024 HEMOG LOBIN A1C hemoglobin A1C 5.0 % 4.0-5. 6 The Ameri can Diabe sendy Assoc iatio n recom mends that a prima ry goal of thera py shoul d be a HBA1C of < 7% and that physi cians shoul d reeva luate the treat ment regim en in patie nts with HBA1C value s consi stent ly > 8%. <5.7% Luann l 5.7 - 6.4% Incre ased risk for diabe sendy >=6.5 % Diagn ostic of diabe sendy <7.0% Goal of thera py >8.0% Actio n sugge sted Not Available [facility] (Lab) [address] [facility], [place], [address], 11/15/2024 09:55:50 11/15/19 25 11/14/2024 TYPE/ RH/SC REEN ABO/Rh type A NEG Not Available [facility] (Lab) [address] [facility], [place], [address], 11/15/2024 09:55:50 11/15/19 25 11/14/2024 TYPE/ RH/SC REEN antibody screen NEG Not Available [facility] (Lab) [address] [facility], [place], [address], 11/15/2024 09:55:50 11/15/19 25 11/14/2024 TYPE/ RH/SC REEN exp date 2024 23:59 Not Available [facility] (Lab) [address] [facility], [place], [address], 11/15/2024 09:55:50 11/15/19 25 11/14/2024 RPR SCREE N, REFLE X TITER /CONF IRMAT ION RPR qualitative Nonrea ctive nonrea ctive Not Available [facility] (Lab) [address] [facility], [place], [address], 11/15/2024 09:55:51 02/07/20 25 02/06/2025 MILTON TIN / IRON / TRANS MILTON N / TIBC iron 99 ug/dL 40-170 Not Available [facility] (Lab) [address] [facility], [place], [address], 02/07/2025 04:27:48 02/07/20 25 02/06/2025 MILTON TIN / IRON / TRANS MILTON N / TIBC transferrin 345 mg/dL 200-36 0 Not Available [facility] (Lab) [address] [facility], [place], [address], 02/07/2025 04:27:48 02/07/20 25 02/06/2025 MILTON TIN / IRON / TRANS MILTON N / TIBC ferritin 12.6 NG/mL 8.0-25 2.0 Not Available [facility] (Lab) [address] [facility], [place], [address], 02/07/2025 04:27:48 02/07/20 25 02/06/2025 MILTON TIN / IRON / TRANS MILTON N / TIBC TIBC 483 ug/dL 250-45 0 high Not Available [facility] (Lab) [address] [facility], [place], [address], 02/07/2025 04:27:48 02/07/20 25 02/06/2025 MILTON TIN / IRON / TRANS MILTON N / TIBC iron saturation 20 % 20-55 Not Available [facility] (Lab) [address] [facility], [place], [address], 02/07/2025 04:27:48 11/27/19 25 11/26/2024 US, obste tric, 2nd or 3rd trime ster No observ ation record ed. [email or web address] [place] [address], [place], [address], 11/26/2024 18:13:04 11/27/19 25 11/26/2024 US, obste tric, 2nd or 3rd trime ster No observ ation record ed. [email or web address] [address], [place], [address], 11/26/2024 18:15:16 11/27/19 25 11/26/2024 US, obste tric, 2nd or 3rd trime ster No observ ation record ed. [email or web address] [address], [place], [address], 11/27/2024 21:27:34 12/25/19 25 12/24/2024 US, obste tric, follo w-up No observ ation record ed. [email or web address] [place] [address], [place], [address], 12/24/2024 12:42:38 12/25/19 25 12/24/2024 , obste tric, follo w-up No observ ation record ed. [email or web address] [address], [place], [address], 12/25/2024 12:27:01 Result Notes None recorded. Problems Name Problem SNOMED Code Status Onset Date Resolution Date Notes Provider Name and Address Organization Details Recorded Time 91335404 Active 2024 DAYRON Calles [facility] 17:34:37 Congenita l pyloric stenosis 846221698 Active 2024 s/p repair KIRAN BUNDY MD [address], [place], [address], [facility] 17:52:32 Problem Notes None recorded. Procedures Surgical History Date Name Laterality Status Provider Name and Address Organization Details Recorded Time 10/18/19 24 Date of Last Pap Smear completed DAYRON Calles [facility] 10/01/2024 17:34:02 03/14/19 15 Orthopedic Surgery completed Zoya Ed [facility] 10/13/2023 09:42:07 03/14/19 09 Tonsillectomy completed Zoya Ward [facility] 10/13/2023 09:42:00 10/13/19 03 dilation of pyloric stricture completed LENNY Butt [address], [place], [address], [facility] 10/13/2023 10:02:07 Imaging Results None recorded. Procedure Notes None recorded. Medical Equipment None Reported. Allergies Allergen ID Allergen Name Allergen Category Reaction Reaction Severity Criticality Documentation Date Start Date Code Code System Note Provider Name and Address Organization Details Recorded Time 31662 cat's claw preparati on medicatio n eye redness mild Not available 08/01/2024 41714 3 RxNorm Phoebe dejesus [facility] 09:15:09 Medications Name Sig Start Date [...] Available Not Available Vitals Date Recorded Body weight Systolic And Diastolic Provider Name and Address Organization Details Last Updated DateTime 11/26/2024 06696.32884 g 100/67 mm[Hg] Donna Hopkins [facility] 11/26/2024 17:10:22 Date Recorded Body height Body mass index (BMI) Body weight Systolic And Diastolic Provider Name and Address Organization Details Last Updated DateTime 12/24/2024 157.48 cm 31.6 kg/m2 79279.48 g 110/73 mm[Hg] Kristina Pires [facility] 12/24/2024 12:01:51 Date Recorded Body weight Systolic And Diastolic Provider Name and Address Organization Details Last Updated DateTime 01/22/2025 63071.77865 g 103/70 mm[Hg] Kristina Pires [facility] 01/22/2025 10:29:24 Date Recorded Body height Body mass index (BMI) Body weight Systolic And Diastolic Provider Name and Address Organization Details Last Updated DateTime 02/06/2025 157.48 cm 33.1 kg/m2 13342.22 g 100/69 mm[Hg] Donna Hopkins [facility] 02/06/2025 10:43:52 Social History Question Answer Notes LastModified by Organizat ion Details LastModified Time Tobacco Smoking Status Never Smoker Phoebe Cortesgael dejesus, [facility] 08/01/2024 09:18:14 Do You Have An Advance Directive? No [email or web address] Information n ot available 08/01/2024 Are You Blind Or Do You Have Difficulty Seeing? No Information n ot available 10/13/2023 What Is Your Level Of Caffeine Consumption? Occasional [email or web address] Information not available 09/03/2024 How Much Tobacco Do You Chew? None Information not available 10/13/2023 In The 14 Days Before Symptom Onset, Have You Had Close Contact With A Laboratory-confirm ed COVID-19 While That Case Was Ill? No [email or web address] Information n ot available 10/13/2023 In The 14 Days Before Symptom Onset, Have You Had Close Contact With A Person Who Is Under Investigation For COVID-19 While That Person Was Ill? No [email or web address] Information not available 10/13/2023 Have You Been To An Area Known To Be High Risk For COVID-19? No [email or web address] Information not available 10/13/2023 Are You Deaf Or Do You Have Serious Difficulty Hearing? No [email or web address] Information not available 10/13/2023 What Type Of Diet Are You Following? REGULAR [email or web address] Information n ot available 10/13/2023 What Is The Highest Grade Or Level Of School You Have Completed Or The Highest Degree You Have Received? [id number] [email or web address] Information not available 08/01/2024 Are There Any Guns Present In Your Home? Yes [email or web address] Information not available 10/01/2024 Do You Use Protection During Sex? Usually [email or web address] Information not available 08/01/2024 Do You Use Your Seat Belt Or Car Seat Routinely? Yes Information not available 10/13/2023 Do You Have Smoke And Carbon Monoxide Detectors In Your Home? Yes [email or web address] Information not available 10/13/2023 How Much Tobacco Do You Smoke? No [email or web address] Information not available 10/13/2023 Do You Use Sunscreen Routinely? Yes [email or web address] Information not available 10/13/2023 Have You Used IV Drugs? No [email or web address] Information not available 10/13/2023 Do You Have Difficulty Walking Or Climbing Stairs? No [email or web address] Information not available 10/13/2023 Sex: Unknown Functional Status Question Answer Note LastModified by Organizat ion Details LastModified Time Do you use any illicit or recreational drugs? No [email or web address] Information not available 10/13/2023 What is your level of alcohol consumption? None [email or web address] Information not available 10/13/2023 Are you able to walk independently without assistance or assistive devices? YESWOREST [email or web address] Information not available 10/13/2023 Are you able to care for yourself independently? 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 No [email or web address] Information not available 10/13/2023 What is your exercise level? Moderate [email or web address] Information not available 10/13/2023 Mental Status Question Answer Note LastModified by Organization D etails LastModified Time Do you feel stressed (tense, restless, nervous, or anxious, or unable to sleep at night)? [id number] Information not available 10/01/2024 Family History Relationship Description Onset Age of this Age Resolved Age Notes LastModified by Organization Details LastModified Time Mother Polycystic ovary syndrome [email or web address] Not available 2023 09:40:21 Medical History Condition Response Allergies (Food, seasonal, environmental ) N Other N Breast Cancer N Drug/Latex Allergies/Reactions N Blood Transfusion N Dermatologic Disorders N Lung Disease N Defects or Inherited Disease N Breast [...] ICD10 Code Diagnosis IMO Codes Diagnosis Note [id number] LENNY Butt [place] [address] [address] 10/13/2023 09:26:22 10/13/2023 10:20:53 Gynecologic examination 30110417 Z01.419 WWEBC - condomspap updateddec lined STI screenenco uraged annual exam with PCP It is strongly advised to have an annual flu shot and up can obtain at most pharmacies . If you have not had a TDap shot in the last 10 years you should obtain one as well. Discussed with patient & provided with informatio n regarding the HPV vaccine. Encourage safe sexual practices. Do monthly self breast exams. BRCA testing is now available for patients with strong genetic history of female cancer. If interested contact the office. Engage in regular exercise. Avoid tobacco and illicit drugs. This lifestyle behavior pattern will lead to less health conditions and longer life span. If BMI greater than 25 dietary consult advised. Patient received above instructio ns, and questions have been answered. [id number] LENNY Butt [place] [address],[place] [address] 08/01/2024 08:56:13 08/01/2024 12:15:30 Urine test positive 713504726 Z32.01 95435101 UPT (+) todaybhcg orderedpre gnancy related precaution s reviewed and when to notify officewill update pt with bhcg results when availablec ontinue daily PNVdiscuss ed breast changes in early pregnancyo rder give for right axillary u/s Time spent in visit is a total of 20 mins with at least 50% of visit consisting of counseling and review of plan of care. Mass of ri ght axillary region [id number] R22.31 [id number] KIRAN BUNDY MD [place] [address],[place] [address] 09/03/2024 15:55:06 09/03/2024 17:14:48 [id number] KIRAN BUNDY MD [place] [address],[place] [address] 09/03/2024 15:55:34 09/03/2024 17:45:09 test positive 184049612 Z32.01 958530 1. Exam today within normal limits.2. Ultrasound today confirms GA and viability. EDC . GC/Clamydi a testing done: will f/u as indicated. 4. ACOG guidelines and plan of care for reviewed with patient. All questions answered.5 . Return to office at 12 weeks for new OB visit6. Will need new OB labs at next visit.7. Genetic screening: declines. [id number] KIRAN BUNDY MD [place] [address],[place] [address] 10/01/2024 16:49:16 10/02/2024 09:20:05 screening 078213853 Z36.82 Z3A.12 [id number] KIRAN BUNDY MD [place] [address],[place] [address] 10/01/2024 17:07:59 10/01/2024 17:54:59 First trimester 98374511 Z34.01 90661341 screening 2437 21853 Z36.89 [id number] MD Pushpa HAMPTON [address],[place] [address] 11/14/2024 17:10:12 11/14/2024 17:58:27 Second trimester 39774809 Z34.02 44088899 [id number] MD Pushpa HAMPTON [address],[place] [address] 11/26/2024 15:59:04 11/26/2024 17:15:19 screening for malformation 056178050 Z36.3 Z3A.20 4946436899 [id number] MD Pushpa HAMPTON [address],[place] [address] 11/26/2024 16:00:34 11/26/2024 17:45:52 Second trimester 75649009 Z34.02 15852230 [id number] MD Pushpa Lara [address],[place] [address] 12/24/2024 10:58:33 12/24/2024 11:43:11 Follow-up encounter 334990149 Z36.2 Z3A.24 [id number] MD Pushpa Lara [address],[place] [address] 12/24/2024 10:59:57 12/24/2024 12:26:33 Second trimester 38531740 Z34.02 82276891 [id number] MD Pushpa HAMPTON [address],[place] [address] 01/22/2025 10:01:34 01/22/2025 11:19:39 Third trimester 40670990 Z34.03 32499640 [id number] MD Pushpa HAMPTON [address],[place] [address] 02/06/2025 10:29:19 02/06/2025 11:01:57 Third trimester 68178950 Z34.03 [id number] Health Concerns Section Related Observation LastModified by Organization Detai ls LastModified Time None Recorded Concern Status LastModified by Organization Details LastModified Time None Recorded Advance Directives Directive N: Payers Insurance Date Sequence Insurance Name Policy Number Policy Godinez Covered Member ID Godinez Member ID Guarantor Name 02/07/2025 1 [place] [id number] Richard Gage [id number] Phoebe Leonid [place] 09/29/2023 1 [place] [id number] Richard Gage [id number] Phoebe [place] Notes Date Note Type Note Provider Name and Address Organization Details Recorded Time 11/26/2024 text/html Generic HPI TemplateReported by Patient KIRAN BUNDY MD [address], [place], [address], [facility] 11/26/2024 17:38:55 12/24/2024 text/html Generic HPI TemplateReported by Patient Slim Galloway MD [address], [place], [address], [facility] 12/24/2024 12:26:05 01/22/2025 text/html Generic HPI TemplateReported by Patient KIRAN BUNDY MD [address], [place], [address], [facility] 01/22/2025 11:05:18 02/06/2025 text/html Generic HPI TemplateReported by Patient KIRAN BUNDY MD [address], [place], [address], [facility] 02/06/2025 11:00:48 OBGyn Episode Ob Episode Information Episode Created Date Number of Fetuses Patient Bloodtype Patient rh Status Prepregnancy Weight lbs Domestic Partner Domestic Partner Phone Father Name Otm Consultant Status 10/02/19 25 1 A Negative OPEN Fetus Data First Name Last Name Admitted to NICU Weight (g) Sex Living Outcome Pediatric Complications Fetus ID Race Codes Race Delivery Type [id number] Problems Problem Notes Problem Name Start Date End Date Resolution Snomed Code Not e Congenital pyloric stenosis 10/01/2024 [id number] s/p re pair Jason Calculation Initial Jason [...] Date Ultra Sound Latest Days Gestation 0 [email or web address] 10/01/2024 04/13/19 26 0 Pre-dana Flowsheet Flowsheet [...] Weight in lbs Pre/Post Dialysis Refused Weight 155.213051347508 BP Diastolic BP Location Tested BP Systolic BP Type 66 L arm 99 sitting Fetus Heart Rate Present A Present Fetus Movement Comments Patient presents to [facility] care. Hx of pyloric stenosis repair as [...] Weight in lbs Pre/Post Dialysis Refused Weight 164.958609099909 BP Diastolic BP Location Tested BP Systolic [...] Type Weight in lbs Pre/Post Dialysis Refused 165.968994942276 BP Diastolic BP Location Tested BP Systolic [...] Weight in lbs Pre/Post Dialysis Refused Weight 173.184651949528 BP Diastolic BP Location Tested BP Systolic [...] Type Weight in lbs Pre/Post Dialysis Refused 175.248736404169 BP Diastolic BP Location Tested BP Systolic [...] Weight in lbs Pre/Post Dialysis Refused Weight [id number] BP Diastolic BP Location Tested BP Systolic [...]
--- OUTSIDE RECORDS SUMMARY | 2025-02-17 12:10 | XMS_ITS | Continuity of Care Document ---
Author Organization [facility] Address [address] [place] [address] Care Team Providers Care Manufacturing Production Manager Name Role Phone KURT LEI Primary Care Provider [phone] Assessment No assessment recorded. Plan of Treatment [...] t Abnor mal: No Resul ting Lab: [facility] [address] [facility] [address] Tel: CULTU RE ----- ----- ----- --- No growt h in 1 day (dete ction level of 10,00 0 colon ies / ml.) Not Available [facility] (Lab) [address], [place], [address], 10/02/2024 23:45:23 10/02/19 25 10/01/2024 drug scree n, urine Amphetamines : negati ve Not Available [facility] [address], [place], [address], 10/01/2024 18:02:01 10/02/19 25 10/01/2024 drug scree n, urine Cannabinoids : negati ve Not Available [facility] [address], [place], [address], 10/01/2024 18:02:01 10/02/19 25 10/01/2024 drug scree n, urine Cocaine: negati ve Not Available [facility] [address], [place], [address], 10/01/2024 18:02:01 10/02/19 25 10/01/2024 drug scree n, urine Opiates: negati ve Not Available [facility] [address], [place], [address], 10/01/2024 18:02:01 10/02/19 25 10/01/2024 drug scree n, urine Phenocyclidi ne: negati ve Not Available [facility] [address], [place], [address], 10/01/2024 18:02:01 10/02/19 25 10/01/2024 drug scree n, urine Barbiturates : negati ve Not Available [facility] [address], [place], [address], 10/01/2024 18:02:01 10/02/19 25 10/01/2024 drug scree n, urine Benzodiazepi harvinedr: negati ve Not Available [facility] [address], [place], [address], 10/01/2024 18:02:01 10/02/19 25 10/01/2024 drug scree n, urine Ethanol: negati ve Not Available [facility] [address], [place], [address], 10/01/2024 18:02:01 10/02/19 25 10/01/2024 drug scree n, urine Hallucinogen s: negati ve Not Available [facility] [address], [place], [address], 10/01/2024 18:02:01 10/02/19 25 10/01/2024 drug scree n, urine Inhalants: negati ve Not Available [facility] [address], [place], [address], 10/01/2024 18:02:01 10/02/19 25 10/01/2024 drug scree n, urine Anabolic Steroids: negati ve Not Available [facility] [address], [place], [address], 10/01/2024 18:02:01 10/02/19 25 10/01/2024 drug scree n, urine Other: negati ve Not Available [facility] [address], [place], [address], 10/01/2024 18:02:01 11/15/19 25 11/14/2024 CBC W/DIF F WBC 8.8 10'3/ uL 3.5-10 .5 Not Available [facility] (Lab) [address], [place], [address], 11/15/2024 09:55:48 11/15/1911/14/2024 CBC W/DIF F RBC 3.26 10'6/ uL (based on docume nted legal sex) 3.80-5 .20 low Not Available [facility] (Lab) [address] [place], [address], 11/15/2024 09:55:48 11/15/1911/14/2024 CBC W/DIF F HGB 10.2 g/dL (based on docume nted legal sex) 11.6-1 5.4 low Not Available [facility] (Lab) [address] [facility], [place], [address], 11/15/2024 09:55:48 11/15/1911/14/2024 CBC W/DIF F HCT 31.0 % (based on docume nted legal sex) 34.0-4 5.0 low Not Available [facility] (Lab) [address], [place], [address], 11/15/2024 09:55:48 11/15/1911/14/2024 CBC W/DIF F MCV 95.1 fL 80.0-9 9.0 Not Available [facility] (Lab) [address] [facility], [place], [address], 11/15/2024 09:55:48 11/15/1911/14/2024 CBC W/DIF F MCH 31.3 pg 27.0-3 4.0 Not Available [facility] (Lab) [address], [place], [address], 11/15/2024 09:55:48 11/15/1911/14/2024 CBC W/DIF F MCHC 32.9 g/dL 32.0-3 5.5 Not Available [facility] (Lab) [address] [facility], [place], [address], 11/15/2024 09:55:48 11/15/1911/14/2024 CBC W/DIF F RDW 13.2 % 11.0-1 5.0 Not Available [facility] (Lab) [address] [facility], [place], [address], 11/15/2024 09:55:48 11/15/1911/14/2024 CBC W/DIF F plt 261 10'3/ uL 150-40 0 Not Available [facility] (Lab) [address], [place], [address], 11/15/2024 09:55:48 11/15/1911/14/2024 CBC W/DIF F MPV 11.6 fL 8.8-12 .1 Not Available [facility] (Lab) [address], [place], [address], 11/15/2024 09:55:48 11/15/1911/14/2024 CBC W/DIF F NRBC's 0.0 % 0.0 Not Available [facility] (Lab) [address], [place], [address], 11/15/2024 09:55:48 11/15/1911/14/2024 CBC W/DIF F absolute NRBCs 0.0 10'3/ uL no refere nce range establ ished Not Available [facility] (Lab) [address], [place], [address], 11/15/2024 09:55:48 11/15/1911/14/2024 CBC W/DIF F neutrophils 79.2 % 34.0-7 3.0 high Not Available [facility] (Lab) [address], [place], [address], 11/15/2024 09:55:48 11/15/1911/14/2024 CBC W/DIF F lymphocytes 13.4 % 15.0-5 0.0 low Not Available [facility] (Lab) [address], [place], [address], 11/15/2024 09:55:48 11/15/1911/14/2024 CBC W/DIF F monocytes 5.9 % 1.0-15 .0 Not Available [facility] (Lab) [address], [place], [address], 11/15/2024 09:55:48 11/15/19 25 11/14/2024 CBC W/DIF F eosinophils 0.9 % 0.0-8. 0 Not Available [facility] (Lab) [address], [place], [address], 11/15/2024 09:55:48 11/15/19 25 11/14/2024 CBC W/DIF F basophils 0.3 % 0.0-2. 0 Not Available [facility] (Lab) [address], [place], [address], 11/15/2024 09:55:48 11/15/1911/14/2024 CBC W/DIF F immature granulocytes 0.3 % no define d refere nce range Immat ure Granu locyt es (IG) repre sents autom ated enume ratio n of Metam yeloc ytes, Myelo cytes and Promy elocy sendy when IG is < 5%. Blast s are not inclu ded in IG and repor henry separ ately if prese nt. Not Available [facility] (Lab) [address], [place], [address], 11/15/2024 09:55:48 11/15/19 25 11/14/2024 CBC W/DIF F absolute neutrophils 7.0 10'3/ uL 1.5-8. 0 Not Available [facility] (Lab) [address], [place], [address], 11/15/2024 09:55:48 11/15/1911/14/2024 CBC W/DIF F absolute lymphocytes 1.2 10'3/ uL 1.0-4. 0 Not Available [facility] (Lab) [address] [place], [address], 11/15/2024 09:55:48 11/15/19 25 11/14/2024 CBC W/DIF F absolute monocytes 0.5 10'3/ uL 0.2-1. 0 Not Available [facility] (Lab) [address], [place], [address], 11/15/2024 09:55:48 11/15/1911/14/2024 CBC W/DIF F absolute eosinophils 0.1 10'3/ uL 0.0-0. 6 Not Available [facility] (Lab) [address] [facility], [place], [address], 11/15/2024 09:55:48 11/15/1911/14/2024 CBC W/DIF F absolute basophils 0.0 10'3/ uL 0.0-0. 3 Not Available [facility] (Lab) [address] [facility], [place], [address], 11/15/2024 09:55:48 11/15/1911/14/2024 CBC W/DIF F absolute [...] foster book. nm.or g/gen derx Not Available [facility] (Lab) [address] [facility], [place], [address], 11/15/2024 09:55:48 11/15/1911/14/2024 HEPAT ITIS B SURFA CE ANTIG EN hepatitis B surface antigen Non-re active non-re active This assay was perfo rmed using [employer] ratio n reage nts and test kits. Value s obtai christine with other assay metho ds or kits canno t be used inter laughlin eably . Not Available [facility] (Lab) [address] [facility], [place], [address], 11/15/2024 09:55:48 11/15/1911/14/2024 HIV 1/2 ANTIG EN/AN TIBOD Y, REFLE X CONFI RMATI ON HIV antigen/anti body Nonrea ctive nonrea ctive HIV-1 antig en and HIV-1 /HIV- 2 antib odies were not detec henry. No labor atory evide nce of HIV infec tion. Not Available [facility] (Lab) [address] [facility], [place], [address], 11/15/2024 09:55:49 11/15/1911/14/2024 HEPAT ITIS C ANTIB MARGARITA SCREE N, REFLE X TO CONFI RMATI ON hepatitis C antibody Non-re active non-re active Antib odies to HCV Not Detec henry, does not exclu de the possi bilit y of expos ure to HCV. Not Available [facility] (Lab) [address] [facility], [place], [address], 11/15/2024 09:55:49 11/15/1911/14/2024 RUBEL LA IGG ANTIB MARGARITA, QUANT rubella antibodies, IgG Reacti ve reacti ve Not Available [facility] (Lab) [address] [facility], [place], [address], 11/15/2024 09:55:50 11/15/1911/14/2024 RUBEL LA IGG ANTIB MARGARITA, QUANT rubella antibodies, IgG quant 17.5 IU/mL >=10 Non-r eacti ve (Non- Immun e) <10 IU/mL React pat (Immu ne) > or = 10 IU/mL Not Available [facility] (Lab) [address] [place], [address], 11/15/2024 09:55:50 11/15/1911/14/2024 HEMOG LOBIN A1C hemoglobin [...] >8.0% Actio n sugge sted Not Available [facility] (Lab) [address] [facility], [place], [address], 11/15/2024 09:55:50 11/15/19 25 11/14/2024 TYPE/ RH/SC REEN ABO/Rh type A NEG Not Available [facility] (Lab) [address] [facility], [place], [address], 11/15/2024 09:55:50 11/15/1911/14/2024 TYPE/ RH/SC REEN antibody screen NEG Not Available [facility] (Lab) [address] [facility], [place], [address], 11/15/2024 09:55:50 11/15/19 25 11/14/2024 TYPE/ RH/SC REEN exp date 2024 23:59 Not Available [facility] (Lab) [address] [facility], [place], [address], 11/15/2024 09:55:50 11/15/19 25 11/14/2024 RPR SCREE N, REFLE X TITER /CONF IRMAT ION RPR qualitative Nonrea ctive nonrea ctive Not Available [facility] (Lab) [address] [facility], [place], [address], 11/15/2024 09:55:51 10/02/19 25 10/02/2024 US, elva berkowitz, nucha l trans lucen cy No observ ation record ed. [email or web address] [facility] [address], [place], [address], 10/02/2024 13:10:46 10/02/19 25 10/02/2024 US, obste tric, 1st trime ster No observ ation record ed. [email or web address] [facility] [address], [place], [address], 10/02/2024 13:10:55 10/02/1910/01/2024 US, obste tric, nucha l trans lucen cy No observ ation record ed. Marly [address] [place] [address] [address], [place], [address], 10/05/2024 09:46:48 11/27/1911/26/2024 US, obste tric, 2nd or 3rd trime ster No observ ation record ed. [email or web address] [facility] [address], [place], [address], 11/26/2024 18:13:04 11/27/1911/26/2024 US, obste tric, 2nd or 3rd trime ster No observ ation record ed. [email or web address] [address], [place], [address], 11/26/2024 18:15:16 11/27/1911/26/2024 US, obste tric, 2nd or 3rd trime ster No observ ation record ed. [email or web address] [address], [place], [address], 11/27/2024 21:27:34 12/25/1912/24/2024 US, obste tric, follo w-up No observ ation record ed. [email or web address] [facility] [address], [place], [address], 12/24/2024 12:42:38 12/25/1912/24/2024 US, obste tric, follo w-up No observ ation record ed. [email or web address] [address], [place], [address], 12/25/2024 12:27:01 Result Notes None recorded. Problems Name Problem SNOMED Code Status Onset Date Resolution Date Notes Provider Name and Address Organization Details Recorded Time 53055630 Active 2024 [facility] 17:34:37 Congenita l pyloric stenosis 940859157 Active 2024 s/p repair KIRAN BUNDY MD [address], [place], [address], [facility] 17:52:32 Problem Notes None recorded. Procedures Surgical History Date Name Laterality Status Provider Name and Address Organization Details Recorded Time 10/18/19 24 Date of Last Pap Smear completed DAYRON Calles [facility] 10/01/2024 17:34:02 03/14/19 15 Orthopedic Surgery completed Zoya Ward [facility] 10/13/2023 09:42:07 03/14/19 09 Tonsillectomy completed Zoya Ward [facility] 10/13/2023 09:42:00 10/13/19 03 dilation of pyloric stricture completed LENNY Butt [address], [place], [address], [facility] 10/13/2023 10:02:07 Imaging Results None recorded. Procedure Notes None recorded. Medical Equipment None Reported. Allergies Allergen ID Allergen Name Allergen Category Reaction Reaction Severity Criticality Documentation Date Start Date Code Code System Note Provider Name and Address Organization Details Recorded Time 86531 cat's claw preparati on medicatio n eye redness mild Not available 08/01/2024 70848 3 RxNorm [facility]ers [facility] 09:15:09 Medications Name Sig Start Date [...] Address Organization Details Last Updated DateTime 11/26/2024 79290.74930 g 100/67 mm[Hg] Donna Hopkins [facility] 11/26/2024 17:10:22 Social History Question Answer Notes LastModified by Organizat ion Details LastModified Time Tobacco Smoking Status Never Smoker Phoebe Meyers null, [facility] 08/01/2024 09:18:14 Do You Have An Advance Directive? No [email or web address] Information n ot available 08/01/2024 Are You Blind Or Do You Have Difficulty Seeing? No [email or web address] Information n ot available 10/13/2023 What Is Your Level Of Caffeine Consumption? Occasional [email or web address] Information not available 09/03/2024 How Much Tobacco Do You Chew? None [email or web address] Information not available 10/13/2023 In The 14 Days Before Symptom Onset, Have You Had Close Contact With A Laboratory-confirm ed COVID-19 While That Case Was Ill? No [email or web address] Information n ot available 10/13/2023 In The 14 Days Before Symptom Onset, Have You Had Close Contact With A Person Who Is Under Investigation For COVID-19 While That Person Was Ill? No [email or web address] Information not available 10/13/2023 Have You Been To An Area Known To Be High Risk For COVID-19? No [email or web address] Information not available 10/13/2023 Are You Deaf Or Do You Have Serious Difficulty Hearing? No [email or web address] Information not available 10/13/2023 What Type Of Diet Are You Following? REGULAR [email or web address] Information n ot available 10/13/2023 What Is The Highest Grade Or Level Of School You Have Completed Or The Highest Degree You Have Received? [id number] [email or web address] Information not available 08/01/2024 Are There Any Guns Present In Your Home? Yes [email or web address] Information not available 10/01/2024 Do You Use Protection During Sex? Usually [email or web address] Information not available 08/01/2024 Do You Use Your Seat Belt Or Car Seat Routinely? Yes [email or web address] Information not available 10/13/2023 Do You Have Smoke And Carbon Monoxide Detectors In Your Home? Yes Information not available 10/13/2023 How Much Tobacco Do You Smoke? No [email or web address] Information not available 10/13/2023 Do You Use Sunscreen Routinely? Yes [email or web address] Information not available 10/13/2023 Have You Used IV Drugs? No [email or web address] Information not available 10/13/2023 Do You Have Difficulty Walking Or Climbing Stairs? No [email or web address] Information not available 10/13/2023 Sex: Unknown Functional Status Question Answer Note LastModified by Organizat ion Details LastModified Time Do you use any illicit or recreational drugs? No [email or web address] Information not available 10/13/2023 What is your level of alcohol consumption? None [email or web address] Information not available 10/13/2023 Are you able to walk independently without assistance or assistive devices? YESWOREST [email or web address] Information not available 10/13/2023 Are you able to care for yourself independently? 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 No Information not available 10/13/2023 What is your exercise level? Moderate [email or web address] Information not available 10/13/2023 Mental Status Question Answer Note LastModified by Organization D etails LastModified Time Do you feel stressed (tense, restless, nervous, or anxious, or unable to sleep at night)? [id number] [email or web address] Information not available 10/01/2024 Family History Relationship Description Onset Age of this Age Resolved Age Notes LastModified by Organization Details LastModified Time Mother Polycystic ovary syndrome [email or web address] Not available 2023 09:40:21 Medical History Condition Response Allergies (Food, seasonal, environmental ) N Other N Drug/Latex Allergies/Reactions N Blood Transfusion N Breast Cancer N Dermatologic Disorders N Lung Disease N Defects or Inherited Disease N Breast Problem N Gestational Diabetes N Hematologic disorders N Anesthesia Complications N History of STI N Deep Vein Thrombosis N Polycystic ovary syndrome N Anxiety Disorder N Autoimmune disease N Arthritis N Polyps N Infertility N Acid Reflux (GERD) N History of abnormal pap N Cancer N Varicosities N Stroke N Neurologic/Epilepsy N Endometriosis N High Cholesterol N Fibromyalgia N Headaches N Kidney Disease N Heart Problems N Thyroid Problems N Kidney or Bladder Problems N GI Problems N Eating Disorder [...] ICD10 Code Diagnosis IMO Codes Diagnosis Note [id number] KIRAN BUNDY MD [facility] [address],[facility] [place] [address] 11/14/2024 17:10:12 11/14/2024 17:58:27 Second trimester 30365616 Z34.02 [id number] KIRAN BUNDY MD [place] [address] [facility] [place] [address] 11/26/2024 15:59:04 11/26/2024 17:15:19 screening for malformation 217365629 Z36.3 Z3A.20 [id number] KIRAN BUNDY MD [place] [address] [facility] [place] [address] 11/26/2024 16:00:34 11/26/2024 17:45:52 Second trimester 61357016 Z34.02 [id number] Health Concerns Section Related Observation LastModified by Organization Detai ls LastModified Time None Recorded Concern Status LastModified by Organization Details LastModified Time None Recorded Payers Encounter Date Sequence Insurance Name Policy Number Policy Godinez Covered Member ID Godinez Member ID Guarantor Name 11/26/2024 1 [place]) [id number] Richard Almonte [id number] Phoebe Almonte Notes Date Note Type Note Provider Name and Address Organization Details Recorded Time 11/26/2024 text/html Generic HPI TemplateReported by Patient KIRAN BUNDY MD [address], [place], [address], [facility] 11/26/2024 17:38:55 OBGyn Episode Ob Episode Information Episode Created Date Number of Fetuses Patient Bloodtype Patient rh Status Prepregnancy Weight lbs Domestic Partner Domestic Partner Phone Father Name Draw End Hand Status 10/02/19 25 1 A Negative OPEN Fetus Data First Name Last Name Admitted to NICU Weight (g) Sex Living Outcome Pediatric Complications Fetus ID Race Codes Race Delivery Type [id number] Problems Problem Notes Problem Name Start Date End Date Resolution Snomed Code Not e Congenital pyloric stenosis 10/01/2024080454556 s/p re pair Jason Calculation Initial Jason [...] Date Ultra Sound Latest Days Gestation 0 [email or web address] 10/01/2024 04/13/19 26 0 Pre-dana Flowsheet Flowsheet [...] Weight in lbs Pre/Post Dialysis Refused Weight 155.763756349910 BP Diastolic BP Location Tested BP Systolic BP Type 66 L arm 99 sitting Fetus Heart Rate Present A Present Fetus Movement Comments Patient presents to [facility] care. Hx of pyloric stenosis repair as [...] Weight in lbs Pre/Post Dialysis Refused Weight 164.468073026319 BP Diastolic BP Location Tested BP Systolic [...] Type Weight in lbs Pre/Post Dialysis Refused 165.868306674378 BP Diastolic BP Location Tested BP Systolic [...] Weight in lbs Pre/Post Dialysis Refused Weight 173.396985739919 BP Diastolic BP Location Tested BP Systolic [...] Type Weight in lbs Pre/Post Dialysis Refused 175.707208387316 BP Diastolic BP Location Tested BP Systolic [...] Weight in lbs Pre/Post Dialysis Refused Weight 181.715353736279 BP Diastolic BP Location Tested BP Systolic [...]
--- OUTSIDE RECORDS SUMMARY | 2025-02-17 12:10 | XMS_ITS | Continuity of Care Document ---
Author Organization [facility] Address [address] [place] [address] Care Team Providers Care Python Java Developer Name Role Phone KURT LEI Primary Care [...] t Abnor mal: No Resul ting Lab: [facility] [address] [facility] [address] Tel: CULTU RE ----- ----- ----- --- No growt h in 1 day (dete ction level of 10,00 0 colon ies / ml.) Not Available [facility] (Lab) [address], [place], [address], 10/02/2024 23:45:23 10/02/19 25 10/01/2024 drug scree n, urine Amphetamines : negati ve Not Available [facility] [address], [place], [address], 10/01/2024 18:02:01 10/02/19 25 10/01/2024 drug scree n, urine Cannabinoids : negati ve Not Available [facility] [address], [place], [address], 10/01/2024 18:02:01 10/02/19 25 10/01/2024 drug scree n, urine Cocaine: negati ve Not Available [facility] [address], [place], [address], 10/01/2024 18:02:01 10/02/19 25 10/01/2024 drug scree n, urine Opiates: negati ve Not Available [facility] [address], [place], [address], 10/01/2024 18:02:01 10/02/19 25 10/01/2024 drug scree n, urine Phenocyclidi ne: negati ve Not Available [facility] [address], [place], [address], 10/01/2024 18:02:01 10/02/19 25 10/01/2024 drug scree n, urine Barbiturates : negati ve Not Available [facility] [address], [place], [address], 10/01/2024 18:02:01 10/02/19 25 10/01/2024 drug scree n, urine Benzodiazepi harvinder: negati ve Not Available [facility] [address], [place], [address], 10/01/2024 18:02:01 10/02/19 25 10/01/2024 drug scree n, urine Ethanol: negati ve Not Available [facility] [address], [place], [address], 10/01/2024 18:02:01 10/02/19 25 10/01/2024 drug scree n, urine Hallucinogen s: negati ve Not Available [facility] [address], [place], [address], 10/01/2024 18:02:01 10/02/19 25 10/01/2024 drug scree n, urine Inhalants: negati ve Not Available [facility] [address], [place], [address], 10/01/2024 18:02:01 10/02/19 25 10/01/2024 drug scree n, urine Anabolic Steroids: negati ve Not Available [facility] [address], [place], [address], 10/01/2024 18:02:01 10/02/19 25 10/01/2024 drug scree n, urine Other: negati ve Not Available [facility] [address], [place], [address], 10/01/2024 18:02:01 11/15/19 25 11/14/2024 CBC W/DIF F WBC 8.8 10'3/ uL 3.5-10 .5 Not Available [facility] (Lab) [address], [place], [address], 11/15/2024 09:55:48 11/15/1911/14/2024 CBC W/DIF F RBC 3.26 10'6/ uL (based on docume nted legal sex) 3.80-5 .20 low Not Available [facility] (Lab) [address] [place], [address], 11/15/2024 09:55:48 11/15/1911/14/2024 CBC W/DIF F HGB 10.2 g/dL (based on docume nted legal sex) 11.6-1 5.4 low Not Available [facility] (Lab) [address] [facility], [place], [address], 11/15/2024 09:55:48 11/15/1911/14/2024 CBC W/DIF F HCT 31.0 % (based on docume nted legal sex) 34.0-4 5.0 low Not Available [facility] (Lab) [address], [place], [address], 11/15/2024 09:55:48 11/15/1911/14/2024 CBC W/DIF F MCV 95.1 fL 80.0-9 9.0 Not Available [facility] (Lab) [address] [facility], [place], [address], 11/15/2024 09:55:48 11/15/1911/14/2024 CBC W/DIF F MCH 31.3 pg 27.0-3 4.0 Not Available [facility] (Lab) [address], [place], [address], 11/15/2024 09:55:48 11/15/1911/14/2024 CBC W/DIF F MCHC 32.9 g/dL 32.0-3 5.5 Not Available [facility] (Lab) [address] [facility], [place], [address], 11/15/2024 09:55:48 11/15/1911/14/2024 CBC W/DIF F RDW 13.2 % 11.0-1 5.0 Not Available [facility] (Lab) [address] [facility], [place], [address], 11/15/2024 09:55:48 11/15/1911/14/2024 CBC W/DIF F plt 261 10'3/ uL 150-40 0 Not Available [facility] (Lab) [address], [place], [address], 11/15/2024 09:55:48 11/15/1911/14/2024 CBC W/DIF F MPV 11.6 fL 8.8-12 .1 Not Available [facility] (Lab) [address], [place], [address], 11/15/2024 09:55:48 11/15/1911/14/2024 CBC W/DIF F NRBC's 0.0 % 0.0 Not Available [facility] (Lab) [address], [place], [address], 11/15/2024 09:55:48 11/15/1911/14/2024 CBC W/DIF F absolute NRBCs 0.0 10'3/ uL no refere nce range establ ished Not Available [facility] (Lab) [address], [place], [address], 11/15/2024 09:55:48 11/15/1911/14/2024 CBC W/DIF F neutrophils 79.2 % 34.0-7 3.0 high Not Available [facility] (Lab) [address], [place], [address], 11/15/2024 09:55:48 11/15/1911/14/2024 CBC W/DIF F lymphocytes 13.4 % 15.0-5 0.0 low Not Available [facility] (Lab) [address], [place], [address], 11/15/2024 09:55:48 11/15/1911/14/2024 CBC W/DIF F monocytes 5.9 % 1.0-15 .0 Not Available [facility] (Lab) [address], [place], [address], 11/15/2024 09:55:48 11/15/19 25 11/14/2024 CBC W/DIF F eosinophils 0.9 % 0.0-8. 0 Not Available [facility] (Lab) [address], [place], [address], 11/15/2024 09:55:48 11/15/19 25 11/14/2024 CBC W/DIF F basophils 0.3 % 0.0-2. 0 Not Available [facility] (Lab) [address], [place], [address], 11/15/2024 09:55:48 11/15/1911/14/2024 CBC W/DIF F immature granulocytes 0.3 % no define d refere nce range Immat ure Granu locyt es (IG) repre sents autom ated enume ratio n of Metam yeloc ytes, Myelo cytes and Promy elocy sendy when IG is < 5%. Blast s are not inclu ded in IG and repor henry separ ately if prese nt. Not Available [facility] (Lab) [address], [place], [address], 11/15/2024 09:55:48 11/15/19 25 11/14/2024 CBC W/DIF F absolute neutrophils 7.0 10'3/ uL 1.5-8. 0 Not Available [facility] (Lab) [address], [place], [address], 11/15/2024 09:55:48 11/15/1911/14/2024 CBC W/DIF F absolute lymphocytes 1.2 10'3/ uL 1.0-4. 0 Not Available [facility] (Lab) [address] [place], [address], 11/15/2024 09:55:48 11/15/19 25 11/14/2024 CBC W/DIF F absolute monocytes 0.5 10'3/ uL 0.2-1. 0 Not Available [facility] (Lab) [address], [place], [address], 11/15/2024 09:55:48 11/15/1911/14/2024 CBC W/DIF F absolute eosinophils 0.1 10'3/ uL 0.0-0. 6 Not Available [facility] (Lab) [address] [facility], [place], [address], 11/15/2024 09:55:48 11/15/1911/14/2024 CBC W/DIF F absolute basophils 0.0 10'3/ uL 0.0-0. 3 Not Available [facility] (Lab) [address] [facility], [place], [address], 11/15/2024 09:55:48 11/15/1911/14/2024 CBC W/DIF F absolute [...] foster book. nm.or g/gen derx Not Available [facility] (Lab) [address] [facility], [place], [address], 11/15/2024 09:55:48 11/15/1911/14/2024 HEPAT ITIS B SURFA CE ANTIG EN hepatitis B surface antigen Non-re active non-re active This assay was perfo rmed using [employer] ratio n reage nts and test kits. Value s obtai christine with other assay metho ds or kits canno t be used inter laughlin eably . Not Available [facility] (Lab) [address] [facility], [place], [address], 11/15/2024 09:55:48 11/15/1911/14/2024 HIV 1/2 ANTIG EN/AN TIBOD Y, REFLE X CONFI RMATI ON HIV antigen/anti body Nonrea ctive nonrea ctive HIV-1 antig en and HIV-1 /HIV- 2 antib odies were not detec henry. No labor atory evide nce of HIV infec tion. Not Available [facility] (Lab) [address] [facility], [place], [address], 11/15/2024 09:55:49 11/15/1911/14/2024 HEPAT ITIS C ANTIB MARGARITA SCREE N, REFLE X TO CONFI RMATI ON hepatitis C antibody Non-re active non-re active Antib odies to HCV Not Detec henry, does not exclu de the possi bilit y of expos ure to HCV. Not Available [facility] (Lab) [address] [facility], [place], [address], 11/15/2024 09:55:49 11/15/1911/14/2024 RUBEL LA IGG ANTIB MARGARITA, QUANT rubella antibodies, IgG Reacti ve reacti ve Not Available [facility] (Lab) [address] [facility], [place], [address], 11/15/2024 09:55:50 11/15/1911/14/2024 RUBEL LA IGG ANTIB MARGARITA, QUANT rubella antibodies, IgG quant 17.5 IU/mL >=10 Non-r eacti ve (Non- Immun e) <10 IU/mL React pat (Immu ne) > or = 10 IU/mL Not Available [facility] (Lab) [address] [place], [address], 11/15/2024 09:55:50 11/15/1911/14/2024 HEMOG LOBIN A1C hemoglobin [...] >8.0% Actio n sugge sted Not Available [facility] (Lab) [address] [facility], [place], [address], 11/15/2024 09:55:50 11/15/19 25 11/14/2024 TYPE/ RH/SC REEN ABO/Rh type A NEG Not Available [facility] (Lab) [address] [facility], [place], [address], 11/15/2024 09:55:50 11/15/1911/14/2024 TYPE/ RH/SC REEN antibody screen NEG Not Available [facility] (Lab) [address] [facility], [place], [address], 11/15/2024 09:55:50 11/15/19 25 11/14/2024 TYPE/ RH/SC REEN exp date 2024 23:59 Not Available [facility] (Lab) [address] [facility], [place], [address], 11/15/2024 09:55:50 11/15/19 25 11/14/2024 RPR SCREE N, REFLE X TITER /CONF IRMAT ION RPR qualitative Nonrea ctive nonrea ctive Not Available [facility] (Lab) [address] [facility], [place], [address], 11/15/2024 09:55:51 10/02/19 25 10/02/2024 US, elva berkowitz, nucha l trans lucen cy No observ ation record ed. [email or web address] [facility] [address], [place], [address], 10/02/2024 13:10:46 10/02/19 25 10/02/2024 US, obste tric, 1st trime ster No observ ation record ed. [email or web address] [facility] [address], [place], [address], 10/02/2024 13:10:55 10/02/1910/01/2024 US, obste tric, nucha l trans lucen cy No observ ation record ed. [email or web address] [address] [place] [address] [address], [place], [address], 10/05/2024 09:46:48 11/27/1911/26/2024 US, obste tric, 2nd or 3rd trime ster No observ ation record ed. [email or web address] [facility] [address], [place], [address], 11/26/2024 18:13:04 11/27/1911/26/2024 US, obste tric, 2nd or 3rd trime ster No observ ation record ed. [email or web address] [address], [place], [address], 11/26/2024 18:15:16 11/27/1911/26/2024 US, obste tric, 2nd or 3rd trime ster No observ ation record ed. [email or web address] [address], [place], [address], 11/27/2024 21:27:34 12/25/1912/24/2024 US, obste tric, follo w-up No observ ation record ed. [email or web address] [facility] [address], [place], [address], 12/24/2024 12:42:38 12/25/1912/24/2024 US, obste tric, follo w-up No observ ation record ed. [email or web address] [address], [place], [address], 12/25/2024 12:27:01 Result Notes None recorded. Problems Name Problem SNOMED Code Status Onset Date Resolution Date Notes Provider Name and Address Organization Details Recorded Time 39539249 Active 2024 [facility]:34:37 Congenita l pyloric stenosis 171547795 Active 2024 s/p repair KIRAN BUNDY MD [address], [place], [address], [facility] 17:52:32 Problem Notes None recorded. [...] stricture completed LENNY Butt [address], [place], [address], [facility] 10/13/2023 10:02:07 Imaging Results None recorded. Procedure Notes None recorded. Medical Equipment None Reported. Allergies Allergen ID Allergen Name Allergen Category Reaction Reaction Severity Criticality Documentation Date Start Date Code Code System Note Provider Name and Address Organization Details Recorded Time 00213 cat's claw preparati on medicatio n eye redness mild Not available 08/01/2024 65070 3 RxNorm [facility] 09:15:09 Medications Name Sig Start [...] Address Organization Details Last Updated DateTime 01/22/2025 71354.39215 g 103/70 mm[Hg] Kristina Pires [facility] 01/22/2025 10:29:24 Social History Question Answer Notes LastModified by Organizat ion Details LastModified Time Tobacco Smoking Status Never Smoker Phoebe Meyers null, [facility] 08/01/2024 09:18:14 Do You Have An Advance Directive? No [email or web address] Information n ot available 08/01/2024 Are You Blind Or Do You Have Difficulty Seeing? No [email or web address] Information n ot available 10/13/2023 What Is Your Level Of Caffeine Consumption? Occasional [email or web address] Information not available 09/03/2024 How Much Tobacco Do You Chew? None [email or web address] Information not available 10/13/2023 In The 14 Days Before Symptom Onset, Have You Had Close Contact With A Laboratory-confirm ed COVID-19 While That Case Was Ill? No [email or web address] Information n ot available 10/13/2023 In The 14 Days Before Symptom Onset, Have You Had Close Contact With A Person Who Is Under Investigation For COVID-19 While That Person Was Ill? No Information not available 10/13/2023 Have You Been To An Area Known To Be High Risk For COVID-19? No Information not available 10/13/2023 Are You Deaf Or Do You Have Serious Difficulty Hearing? No [email or web address] Information not available 10/13/2023 What Type Of Diet Are You Following? REGULAR Information n ot available 10/13/2023 What Is The Highest Grade Or Level Of School You Have Completed Or The Highest Degree You Have Received? NV09539-2 [email or web address] Information not available 08/01/2024 Are There Any Guns Present In Your Home? Yes [email or web address] Information not available 10/01/2024 Do You Use Protection During Sex? Usually [email or web address] Information not available 08/01/2024 Do You Use Your Seat Belt Or Car Seat Routinely? Yes Information not available 10/13/2023 Do You Have Smoke And Carbon Monoxide Detectors In Your Home? Yes [email or web address] Information not available 10/13/2023 How Much Tobacco Do You Smoke? No [email or web address] Information not available 10/13/2023 Do You Use Sunscreen Routinely? Yes [email or web address] Information not available 10/13/2023 Have You Used IV Drugs? No [email or web address] Information not available 10/13/2023 Do You Have Difficulty Walking Or Climbing Stairs? No [email or web address] Information not available 10/13/2023 Sex: Unknown Functional Status Question Answer Note LastModified by Organizat ion Details LastModified Time Do you use any illicit or recreational drugs? No [email or web address] Information not available 10/13/2023 What is your level of alcohol consumption? None [email or web address] Information not available 10/13/2023 Are you able to walk independently without assistance or assistive devices? YESWOREST [email or web address] Information not available 10/13/2023 Are you able to care for yourself independently? 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 No [email or web address] Information not available 10/13/2023 What is your exercise level? Moderate [email or web address] Information not available 10/13/2023 Mental Status Question Answer Note LastModified by Organization D etails LastModified Time Do you feel stressed (tense, restless, nervous, or anxious, or unable to sleep at night)? [id number] [email or web address] Information not available 10/01/2024 Family History Relationship Description Onset Age of this Age Resolved Age Notes LastModified by Organization Details LastModified Time Mother Polycystic ovary syndrome [email or web address] Not available 2023 09:40:21 Medical History Condition [...] ICD10 Code Diagnosis IMO Codes Diagnosis Note [id number] Slim Galloway MD [facility] [address],[place] [address] 12/24/2024 10:58:33 12/24/2024 11:43:11 Follow-up encounter [id number] Z36.2 Z3A.24 [id number] Slim Galloway MD [facility] [address],[facility] [place] [address] 12/24/2024 10:59:57 12/24/2024 12:26:33 Second trimester 56144987 Z34.02 [id number] KIRAN BUNDY MD [facility] [address],[place] [address] 01/22/2025 10:01:34 01/22/2025 11:19:39 Third trimester 67352797 Z34.03 [id number] Health Concerns Section Related Observation LastModified by Organization Alba murphy LastModified Time None Recorded Concern Status LastModified by Organization Details LastModified Time None Recorded Payers Encounter Date Sequence Insurance Name Policy Number Policy Godinez Covered Member ID Godinez Member ID Guarantor Name 01/22/2025 1 [employer] [id number] Richard Almonte [id number] Phoebe P Almonte Notes Date Note Type Note Provider Name and Address Organization Details Recorded Time 01/22/2025 text/html Generic HPI TemplateReported by Patient KIRAN BUNDY MD [address], [place], [address], [facility] 01/22/2025 11:05:18 OBGyn Episode Ob Episode Information Episode Created Date Number of Fetuses Patient Bloodtype Patient rh Status Prepregnancy Weight lbs Domestic Partner Domestic Partner Phone Father Name Wood Craftsman Status 10/02/19 25 1 A Negative OPEN Fetus Data First Name Last Name Admitted to NICU Weight (g) Sex Living Outcome Pediatric Complications Fetus ID Race Codes Race Delivery Type [id number] Problems Problem Notes Problem Name Start Date End Date Resolution Snomed Code Not e Congenital pyloric stenosis 10/01/2024941284100 s/p re pair Jason Calculation Initial Jason [...] Date Ultra Sound Latest Days Gestation 0 10/01/2024 04/13/19 26 0 Pre- Flowsheet Flowsheet Date 10/01/2024 Gonsalez Score Blood [...] Weight in lbs Pre/Post Dialysis Refused Weight 155.039704473081 BP Diastolic BP Location Tested BP Systolic BP Type 66 L arm 99 sitting Fetus Heart Rate Present A Present Fetus Movement Comments Patient presents to [facility] care. Hx of pyloric stenosis repair as [...] Weight in lbs Pre/Post Dialysis Refused Weight 164.338553822693 BP Diastolic BP Location Tested BP Systolic [...] Type Weight in lbs Pre/Post Dialysis Refused 165.107116285289 BP Diastolic BP Location Tested BP Systolic [...] Weight in lbs Pre/Post Dialysis Refused Weight 173.715549395284 BP Diastolic BP Location Tested BP Systolic [...] Type Weight in lbs Pre/Post Dialysis Refused 175.269598144309 BP Diastolic BP Location Tested BP Systolic [...] Weight in lbs Pre/Post Dialysis Refused Weight 181.637961291612 BP Diastolic BP Location Tested BP Systolic [...]
--- OUTSIDE RECORDS SUMMARY | 2025-02-17 12:11 | XMS_ITS | Continuity of Care Document ---
Author Organization [facility] [address] [place] [address] [place] [address] Care Team Providers Care Health And Safety Technician Name Role Phone KURT LEI Primary Care Provider [phone] Assessment No assessment recorded. Plan of Treatment [...] recorded . Surgeries None recorded . Imaging US, obstetri c, follow-u p 2024 025 [email or web address] [facility] [address], [place], [address], 12/24/2024 16:42:55 Medication Orders None recorded . Patient TargetsNo [...] t Abnor mal: No Resul ting Lab: [facility] [address] [facility] [address] Tel: CULTU RE ----- ----- ----- --- No growt h in 1 day (dete ction level of 10,00 0 colon ies / ml.) Not Available [facility] (Lab) [address] [facility], [place], [address], 10/02/2024 23:45:23 10/02/19 25 10/01/2024 drug scree n, urine Amphetamines : negati ve Not Available [place] [address], [place], [address], 10/01/2024 18:02:01 10/02/19 25 10/01/2024 drug scree n, urine Cannabinoids : negati ve Not Available [facility] [address], [place], [address], 10/01/2024 18:02:01 10/02/19 25 10/01/2024 drug scree n, urine Cocaine: negati ve Not Available [place] [address], [place], [address], 10/01/2024 18:02:01 10/02/19 25 10/01/2024 drug scree n, urine Opiates: negati ve Not Available [place] [address], [place], [address], 10/01/2024 18:02:01 10/02/19 25 10/01/2024 drug scree n, urine Phenocyclidi ne: negati ve Not Available [facility] [address], [place], [address], 10/01/2024 18:02:01 10/02/19 25 10/01/2024 drug scree n, urine Barbiturates : negati ve Not Available [facility] [address], [place], [address], 10/01/2024 18:02:01 10/02/19 25 10/01/2024 drug scree n, urine Benzodiazepi harvinder: negati ve Not Available [facility] [address], [place], [address], 10/01/2024 18:02:01 10/02/19 25 10/01/2024 drug scree n, urine Ethanol: negati ve Not Available [facility] [address], [place], [address], 10/01/2024 18:02:01 10/02/19 25 10/01/2024 drug scree n, urine Hallucinogen s: negati ve Not Available [facility] [address], [place], [address], 10/01/2024 18:02:01 10/02/19 25 10/01/2024 drug scree n, urine Inhalants: negati ve Not Available [facility] [address], [place], [address], 10/01/2024 18:02:01 10/02/19 25 10/01/2024 drug scree n, urine Anabolic Steroids: negati ve Not Available [facility] [address], [place], [address], 10/01/2024 18:02:01 10/02/19 25 10/01/2024 drug scree n, urine Other: negati ve Not Available [facility] [address], [place], [address], 10/01/2024 18:02:01 11/15/19 25 11/14/2024 CBC W/DIF F WBC 8.8 10'3/ uL 3.5-10 .5 Not Available [facility] (Lab) [address], [place], [address], 11/15/2024 09:55:48 11/15/1911/14/2024 CBC W/DIF F RBC 3.26 10'6/ uL (based on docume nted legal sex) 3.80-5 .20 low Not Available [facility] (Lab) [address], [place], [address], 11/15/2024 09:55:48 11/15/1911/14/2024 CBC W/DIF F HGB 10.2 g/dL (based on docume nted legal sex) 11.6-1 5.4 low Not Available [facility] (Lab) [address], [place], [address], 11/15/2024 09:55:48 11/15/1911/14/2024 CBC W/DIF F HCT 31.0 % (based on docume nted legal sex) 34.0-4 5.0 low Not Available [facility] (Lab) [address], [place], [address], 11/15/2024 09:55:48 11/15/1911/14/2024 CBC W/DIF F MCV 95.1 fL 80.0-9 9.0 Not Available [facility] (Lab) [address], [place], [address], 11/15/2024 09:55:48 11/15/1911/14/2024 CBC W/DIF F MCH 31.3 pg 27.0-3 4.0 Not Available [facility] (Lab) [address], [place], [address], 11/15/2024 09:55:48 11/15/1911/14/2024 CBC W/DIF F MCHC 32.9 g/dL 32.0-3 5.5 Not Available [facility] (Lab) [address], [place], [address], 11/15/2024 09:55:48 11/15/1911/14/2024 CBC W/DIF F RDW 13.2 % 11.0-1 5.0 Not Available [facility] (Lab) [address], [place], [address], 11/15/2024 09:55:48 11/15/1911/14/2024 CBC W/DIF F plt 261 10'3/ uL 150-40 0 Not Available [facility] (Lab) [address], [place], [address], 11/15/2024 09:55:48 11/15/1911/14/2024 CBC W/DIF F MPV 11.6 fL 8.8-12 .1 Not Available [facility] (Lab) [address], [place], [address], 11/15/2024 09:55:48 11/15/1911/14/2024 CBC W/DIF F NRBC's 0.0 % 0.0 Not Available [facility] (Lab) [address], [place], [address], 11/15/2024 09:55:48 11/15/1911/14/2024 CBC W/DIF F absolute NRBCs 0.0 10'3/ uL no refere nce range establ ished Not Available [facility] (Lab) [address], [place], [address], 11/15/2024 09:55:48 11/15/1911/14/2024 CBC W/DIF F neutrophils 79.2 % 34.0-7 3.0 high Not Available [facility] (Lab) [address], [place], [address], 11/15/2024 09:55:48 11/15/1911/14/2024 CBC W/DIF F lymphocytes 13.4 % 15.0-5 0.0 low Not Available [facility] (Lab) [address], [place], [address], 11/15/2024 09:55:48 11/15/1911/14/2024 CBC W/DIF F monocytes 5.9 % 1.0-15 .0 Not Available [facility] (Lab) [address], [place], [address], 11/15/2024 09:55:48 11/15/1911/14/2024 CBC W/DIF F eosinophils 0.9 % 0.0-8. 0 Not Available [facility] (Lab) [address], [place], [address], 11/15/2024 09:55:48 11/15/1911/14/2024 CBC W/DIF F basophils 0.3 % 0.0-2. 0 Not Available [facility] (Lab) [address], [place], [address], 11/15/2024 09:55:48 11/15/1911/14/2024 CBC W/DIF F immature granulocytes 0.3 % no define d refere nce range Immat ure Granu locyt es (IG) repre sents autom ated enume ratio n of Metam yeloc ytes, Myelo cytes and Promy elocy sendy when IG is < 5%. Blast s are not inclu ded in IG and repor henry separ ately if prese nt. Not Available [facility] (Lab) [address], [place], [address], 11/15/2024 09:55:48 11/15/1911/14/2024 CBC W/DIF F absolute neutrophils 7.0 10'3/ uL 1.5-8. 0 Not Available [facility] (Lab) [address] [place], [address], 11/15/2024 09:55:48 11/15/1911/14/2024 CBC W/DIF F absolute lymphocytes 1.2 10'3/ uL 1.0-4. 0 Not Available [facility] (Lab) [address], [place], [address], 11/15/2024 09:55:48 11/15/1911/14/2024 CBC W/DIF F absolute monocytes 0.5 10'3/ uL 0.2-1. 0 Not Available [facility] (Lab) [address] [facility], [place], [address], 11/15/2024 09:55:48 11/15/1911/14/2024 CBC W/DIF F absolute eosinophils 0.1 10'3/ uL 0.0-0. 6 Not Available [facility] (Lab) [address] [facility], [place], [address], 11/15/2024 09:55:48 11/15/1911/14/2024 CBC W/DIF F absolute basophils 0.0 10'3/ uL 0.0-0. 3 Not Available [facility] (Lab) [address] [facility] [address], [place], [address], 11/15/2024 09:55:48 11/15/1911/14/2024 CBC W/DIF F absolute immature granulocytes 0.0 10'3/ uL 0.00-0 .10 Refer ence range s for nonbi nary/ inter sex or unspe cifie d gende r patie nts have not been estab lishe d. Pleas e [facility] for range s estab lishe d for cisge nder patie nts and evalu ate in the clini mildred xavier xt of the indiv idual patie nt: https ://mary kay foster book. nm.or g/gen derx Not Available [facility] (Lab) [address] [facility] [address], [place], [address], 11/15/2024 09:55:48 11/15/1911/14/2024 HEPAT ITIS B SURFA CE ANTIG EN hepatitis B surface antigen Non-re active non-re active This assay was perfo rmed using [employer] ratio n reage nts and test kits. Value s obtai christine with other assay metho ds or kits canno t be used inter laughlin eably . Not Available [facility] (Lab) [address] [facility] [address] [address], [place], [address], 11/15/2024 09:55:48 11/15/1911/14/2024 HIV 1/2 ANTIG EN/AN TIBOD Y, REFLE X CONFI RMATI ON HIV antigen/anti body Nonrea ctive nonrea ctive HIV-1 antig en and HIV-1 /HIV- 2 antib odies were not detec henry. No labor atory evide nce of HIV infec tion. Not Available [facility] (Lab) [address] [facility] [address], [place], [address], 11/15/2024 09:55:49 11/15/1911/14/2024 HEPAT ITIS C ANTIB MARGARITA SCREE N, REFLE X TO CONFI RMATI ON hepatitis C antibody Non-re active non-re active Antib odies to HCV Not Detec henry, does not exclu de the possi bilit y of expos ure to HCV. Not Available [facility] (Lab) [address], [place], [address], 11/15/2024 09:55:49 11/15/1911/14/2024 RUBEL LA IGG ANTIB MARGARITA, QUANT rubella antibodies, IgG Reacti ve reacti ve Not Available [facility] (Lab) [address] [facility] [address], [place], [address], 11/15/2024 09:55:50 11/15/1911/14/2024 RUBEL LA IGG ANTIB MARGARITA, QUANT rubella antibodies, IgG quant 17.5 IU/mL >=10 Non-r eacti ve (Non- Immun e) <10 IU/mL React pat (Immu ne) > or = 10 IU/mL Not Available [facility] (Lab) [address] [facility] [address], [place], [address], 11/15/2024 09:55:50 11/15/1911/14/2024 HEMOG LOBIN A1C hemoglobin A1C 5.0 % 4.0-5. 6 The Ameri can Diabe sendy Assoc iatio n recom mends that a prima ry goal of thera py gali mart be a HBA1C of < 7% and that physi cians shoul d reeva luate the treat ment regim en in patie nts with HBA1C value s consi stent ly > 8%. <5.7% Luann l 5.7 - 6.4% Incre ased risk for diabe sendy >=6.5 % Diagn ostic of diabe sendy <7.0% Goal of thera py >8.0% Actio n sugge sted Not Available [facility] (Lab) [address], [place], [address], 11/15/2024 09:55:50 11/15/19 25 11/14/2024 TYPE/ RH/SC REEN ABO/Rh type A NEG Not Available [facility] (Lab) [address], [place], [address], 11/15/2024 09:55:50 11/15/19 25 11/14/2024 TYPE/ RH/SC REEN antibody screen NEG Not Available [facility] (Lab) [address], [place], [address], 11/15/2024 09:55:50 11/15/19 25 11/14/2024 TYPE/ RH/SC REEN exp date 2024 23:59 Not Available [facility] (Lab) [address], [place], [address], 11/15/2024 09:55:50 11/15/19 25 11/14/2024 RPR SCREE N, REFLE X TITER /CONF IRMAT ION RPR qualitative Nonrea ctive nonrea ctive Not Available [facility] (Lab) [address], [place], [address], 11/15/2024 09:55:51 10/02/19 25 10/02/2024 US, obste tric, nucha l trans lucen cy No observ ation record ed. [email or web address] [place] [address], [place], [address], 10/02/2024 13:10:46 10/02/1910/02/2024 US, obste tric, 1st trime ster No observ ation record ed. [email or web address] [facility] [place] [address], [place], [address], 10/02/2024 13:10:55 10/02/19 25 10/01/2024 US, obste tric, nucha l trans lucen cy No observ ation record ed. [email or web address] [address], [place], [address], 10/05/2024 09:46:48 11/27/19 25 11/26/2024 US, obste tric, 2nd or 3rd trime ster No observ ation record ed. [email or web address] [place] [address], [place], [address], 11/26/2024 18:13:04 11/27/1911/26/2024 US, obste tric, 2nd or 3rd trime ster No observ ation record ed. [email or web address] [address] [address], [place], [address], 11/26/2024 18:15:16 11/27/1911/26/2024 US, obste tric, 2nd or 3rd trime ster No observ ation record ed. [email or web address] [place] [address], [place], [address], 11/27/2024 21:27:34 12/25/1912/24/2024 US, obste tric, follo w-up No observ ation record ed. [email or web address] [place] [address], [place], [address], 12/24/2024 12:42:38 12/25/19 12/24/2024 US, obste tric, follo w-up No observ ation record ed. [email or web address] Luke [address], [place], [address], 12/25/2024 12:27:01 Result Notes None recorded. Problems Name Problem SNOMED Code Status Onset Date Resolution Date Notes Provider Name and Address Organization Details Recorded Time 01665274 Active 2024 [facility] 17:34:37 Congenita l pyloric stenosis 717040301 Active 2024 s/p repair KIRAN BUNDY MD [address], [place], [address], [facility] 17:52:32 Problem Notes None recorded. Procedures Surgical History Date Name Laterality Status Provider Name and Address Organization Details Recorded Time 10/18/19 24 Date of Last Pap Smear completed DAYRON Calles [facility] 10/01/2024 17:34:02 03/14/19 15 Orthopedic Surgery completed Zoya Ward [facility] 10/13/2023 09:42:07 03/14/19 09 Tonsillectomy completed Zoyanella Ward [facility] 10/13/2023 09:42:00 10/13/19 03 dilation of pyloric stricture completed LENNY Butt [address], [place], [address], [facility] 10/13/2023 10:02:07 Imaging Results None recorded. Procedure Notes None recorded. Medical Equipment None Reported. Allergies Allergen ID Allergen Name Allergen Category Reaction Reaction Severity Criticality Documentation Date Start Date Code Code System Note Provider Name and Address Organization Details Recorded Time 77357 cat's claw preparati on medicatio n eye redness mild Not available 08/01/2024 53564 3 RxNorm Phoebe dejesus [facility] 09:15:09 Medications Name Sig Start Date [...] Updated DateTime 12/24/2024 157.48 cm 31.6 kg/m2 01164.48 g 110/73 mm[Hg] Kristina Pires [facility] 12/24/2024 12:01:51 Social History Question Answer Notes LastModified by Organizat ion Details LastModified Time Tobacco Smoking Status Never Smoker Phoebe Cortesgael dejesus, [facility] 08/01/2024 09:18:14 Do You Have An Advance Directive? No Information n ot available 08/01/2024 Are You Blind Or Do You Have Difficulty Seeing? No [email or web address] Information n ot available 10/13/2023 What Is Your Level Of Caffeine Consumption? Occasional [email or web address] Information not available 09/03/2024 How Much Tobacco Do You Chew? None [email or web address] Information not available 10/13/2023 In The 14 Days Before Symptom Onset, Have You Had Close Contact With A Laboratory-confirm ed COVID-19 While That Case Was Ill? No [email or web address] Information n ot available 10/13/2023 In The 14 Days Before Symptom Onset, Have You Had Close Contact With A Person Who Is Under Investigation For COVID-19 While That Person Was Ill? No Information not available 10/13/2023 Have You Been To An Area Known To Be High Risk For COVID-19? No [email or web address] Information not available 10/13/2023 Are You Deaf Or Do You Have Serious Difficulty Hearing? No Information not available 10/13/2023 What Type Of Diet Are You Following? REGULAR [email or web address] Information n ot available 10/13/2023 What Is The Highest Grade Or Level Of School You Have Completed Or The Highest Degree You Have Received? BF02453-9 [email or web address] Information not available 08/01/2024 Are There Any Guns Present In Your Home? Yes Information not available 10/01/2024 Do You Use Protection During Sex? Usually Information not available 08/01/2024 Do You Use Your Seat Belt Or Car Seat Routinely? Yes [email or web address] Information not available 10/13/2023 Do You Have Smoke And Carbon Monoxide Detectors In Your Home? Yes [email or web address] Information not available 10/13/2023 How Much Tobacco Do You Smoke? No Information not available 10/13/2023 Do You Use Sunscreen Routinely? Yes Information not available 10/13/2023 Have You Used IV Drugs? No [email or web address] Information not available 10/13/2023 Do You Have Difficulty Walking Or Climbing Stairs? No [email or web address] Information not available 10/13/2023 Sex: Unknown Functional Status Question Answer Note LastModified by Organizat ion Details LastModified Time Do you use any illicit or recreational drugs? No [email or web address] Information not available 10/13/2023 What is your level of alcohol consumption? None [email or web address] Information not available 10/13/2023 Are you able to walk independently without assistance or assistive devices? YESWOREST [email or web address] Information not available 10/13/2023 Are you able to care for yourself independently? 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 No [email or web address] Information not available 10/13/2023 What is your exercise level? Moderate [email or web address] Information not available 10/13/2023 Mental Status Question Answer Note LastModified by Organization D etails LastModified Time Do you feel stressed (tense, restless, nervous, or anxious, or unable to sleep at night)? DG50562-3 [email or web address] Information not available 10/01/2024 Family History Relationship Description Onset Age of this Age Resolved Age Notes LastModified by Organization Details LastModified Time Mother Polycystic ovary syndrome [email or web address] Not available 2023 09:40:21 Medical History Condition [...] ICD10 Code Diagnosis IMO Codes Diagnosis Note [id number] KIRAN BUNDY MD [place] [address] [address] 11/26/2024 15:59:04 11/26/2024 17:15:19 screening for malformation 139636450 Z36.3 Z3A.20 [id number] KIRAN BUNDY MD [place] [address] [address] 11/26/2024 16:00:34 11/26/2024 17:45:52 Second trimester 69476115 Z34.02 [id number] Slim Galloway MD [place] [address] [address] 12/24/2024 10:58:33 12/24/2024 11:43:11 Follow-up encounter 726003942 Z36.2 Z3A.24 [id number] Slim Galloway MD [place] [address] [address] 12/24/2024 10:59:57 12/24/2024 12:26:33 Second trimester 32644867 Z34.02 [id number] Health Concerns Section Related Observation LastModified by Organization Detai ls LastModified Time None Recorded Concern Status LastModified by Organization Details LastModified Time None Recorded Payers Encounter Date Sequence Insurance Name Policy Number Policy Godinez Covered Member ID Godinez Member ID Guarantor Name 12/24/2024 1 [facility] [id number] Richard Almonte [id number] Phoebe Almonte Notes Date Note Type Note Provider Name and Address Organization Details Recorded Time 12/24/2024 text/html Generic HPI TemplateReported by Patient Slim Galloway MD [address], [place], [address], [facility] 12/24/2024 12:26:05 OBGyn Episode Ob Episode Information Episode Created Date Number of Fetuses Patient Bloodtype Patient rh Status Prepregnancy Weight lbs Domestic Partner Domestic Partner Phone Father Name Service Plumber Status 10/02/19 25 1 A Negative OPEN Fetus Data First Name Last Name Admitted to NICU Weight (g) Sex Living Outcome Pediatric Complications Fetus ID Race Codes Race Delivery Type [id number] Problems Problem Notes Problem Name Start Date End Date Resolution Snomed Code Not e Congenital pyloric stenosis 10/01/2024 426901010 s/p re pair Jason Calculation Initial Jason [...] Date Ultra Sound Latest Days Gestation 0 [email or web address] 10/01/2024 04/13/19 26 0 Pre-dana Flowsheet Flowsheet [...] Weight in lbs Pre/Post Dialysis Refused Weight 155.901992496774 BP Diastolic BP Location Tested BP Systolic BP Type 66 L arm 99 sitting Fetus Heart Rate Present A Present Fetus Movement Comments Patient [facility] to [facility]. Hx of pyloric stenosis repair [...] Weight in lbs Pre/Post Dialysis Refused Weight 164.690983508972 BP Diastolic BP Location Tested BP Systolic [...] Type Weight in lbs Pre/Post Dialysis Refused 165.261845216699 BP Diastolic BP Location Tested BP Systolic [...] Weight in lbs Pre/Post Dialysis Refused Weight 173.227060303640 BP Diastolic BP Location Tested BP Systolic [...] Type Weight in lbs Pre/Post Dialysis Refused 175.844702669499 BP Diastolic BP Location Tested BP Systolic [...] Weight in lbs Pre/Post Dialysis Refused Weight 181.709864372994 BP Diastolic BP Location Tested BP Systolic [...]
--- OUTSIDE RECORDS SUMMARY | 2025-02-17 12:11 | XMS_ITS | Continuity of Care Document ---
Author Organization [facility] Address [address] [place] [address] Care Team Providers Care Oncology Consultant Name Role Phone KURT LEI Primary Care [...] Lab: [facility] [address] [facility] [address] Tel: CULTU RE ----- ----- ----- --- No growt h in 1 day (dete ction level of 10,00 0 colon ies / ml.) Not Available [facility] (Lab) [address], [place], [address], 10/02/2024 23:45:23 10/02/19 25 10/01/2024 drug scree n, urine Amphetamines : negati ve Not Available [facility] [address], [place], [address], 10/01/2024 18:02:01 10/02/19 25 10/01/2024 drug scree n, urine Cannabinoids : negati ve Not Available [facility] [address], [place], [address], 10/01/2024 18:02:01 10/02/19 25 10/01/2024 drug scree n, urine Cocaine: negati ve Not Available [facility] [address], [place], [address], 10/01/2024 18:02:01 10/02/19 25 10/01/2024 drug scree n, urine Opiates: negati ve Not Available [facility] [address], [place], [address], 10/01/2024 18:02:01 10/02/19 25 10/01/2024 drug scree n, urine Phenocyclidi ne: negati ve Not Available [facility] [address], [place], [address], 10/01/2024 18:02:01 10/02/19 25 10/01/2024 drug scree n, urine Barbiturates : negati ve Not Available [facility] [address], [place], [address], 10/01/2024 18:02:01 10/02/19 25 10/01/2024 drug scree n, urine Benzodiazepi harvinder: negati ve Not Available [facility] [address], [place], [address], 10/01/2024 18:02:01 10/02/19 25 10/01/2024 drug scree n, urine Ethanol: negati ve Not Available [facility] [address], [place], [address], 10/01/2024 18:02:01 10/02/19 25 10/01/2024 drug scree n, urine Hallucinogen s: negati ve Not Available [facility] [address], [place], [address], 10/01/2024 18:02:01 10/02/19 25 10/01/2024 drug scree n, urine Inhalants: negati ve Not Available [facility] [address], [place], [address], 10/01/2024 18:02:01 10/02/19 25 10/01/2024 drug scree n, urine Anabolic Steroids: negati ve Not Available [facility] [address], [place], [address], 10/01/2024 18:02:01 10/02/19 25 10/01/2024 drug scree n, urine Other: negati ve Not Available [facility] [address], [place], [address], 10/01/2024 18:02:01 11/15/19 25 11/14/2024 CBC W/DIF F WBC 8.8 10'3/ uL 3.5-[address] [facility] (Lab) [address], [place], [address], 11/15/2024 09:55:48 11/15/19 25 11/14/2024 CBC W/DIF F RBC 3.26 10'6/ uL (based on docume nted legal sex) 3.80-5 .[address] [facility] (Lab) [address], [place], [address], 11/15/2024 09:55:48 11/15/1911/14/2024 CBC W/DIF F HGB 10.2 g/dL (based on docume nted legal sex) 11.6-1 [address] [facility] (Lab) [address], [place], [address], 11/15/2024 09:55:48 11/15/1911/14/2024 CBC W/DIF F HCT 31.0 % (based on docume nted legal sex) 34.0-[address] [facility] (Lab) [address], [place], [address], 11/15/2024 09:55:48 11/15/1911/14/2024 CBC W/DIF F MCV 95.1 fL 80.0-[address] [facility] (Lab) [address], [place], [address], 11/15/2024 09:55:48 11/15/1911/14/2024 CBC W/DIF F MCH 31.3 pg 27.0-[address] [facility] (Lab) [address], [place], [address], 11/15/2024 09:55:48 11/15/1911/14/2024 CBC W/DIF F MCHC 32.9 g/dL 32.0-[address] [facility] (Lab) [address], [place], [address], 11/15/2024 09:55:48 11/15/1911/14/2024 CBC W/DIF F RDW 13.2 % 11.0-[address] [facility] (Lab) [address] [facility], [place], [address], 11/15/2024 09:55:48 11/15/1911/14/2024 CBC W/DIF F plt 261 10'3/ uL 150-[address] [facility] (Lab) [address] [facility], [place], [address], 11/15/2024 09:55:48 11/15/1911/14/2024 CBC W/DIF F MPV 11.6 fL 8.8-[address] [facility] (Lab) [address], [place], [address], 11/15/2024 09:55:48 11/15/1911/14/2024 CBC W/DIF F NRBC's 0.0 % 0.[address] [facility] (Lab) [address], [place], [address], 11/15/2024 09:55:48 11/15/1911/14/2024 CBC W/DIF F absolute NRBCs 0.0 10'3/ uL no refere nce range establ ished Not Available [facility] (Lab) [address], [place], [address], 11/15/2024 09:55:48 11/15/1911/14/2024 CBC W/DIF F neutrophils 79.2 % 34.0-7 3.[address] [facility] (Lab) [address] [facility], [place], [address], 11/15/2024 09:55:48 11/15/1911/14/2024 CBC W/DIF F lymphocytes 13.4 % 15.0-5 0[address] [facility] (Lab) [address] [facility], [place], [address], 11/15/2024 09:55:48 11/15/1911/14/2024 CBC W/DIF F monocytes 5.9 % 1.0-[address] [facility] (Lab) [address], [place], [address], 11/15/2024 09:55:48 11/15/1911/14/2024 CBC W/DIF F eosinophils 0.9 % 0.0-8. [address] [facility] (Lab) [address], [place], [address], 11/15/2024 09:55:48 11/15/1911/14/2024 CBC W/DIF F basophils 0.3 % 0.0-2. [address] [facility] (Lab) [address], [place], [address], 11/15/2024 09:55:48 11/15/1911/14/2024 CBC W/DIF F immature granulocytes 0.3 % no define d refere nce range Immat ure Granu locyt es (IG) repre sents autom ated enume ratio n of Metam yeloc ytes, Myelo cytes and Promy elocy sendy when IG is < 5%. Blast s are not inclu ded in IG and repor henry separ ately if prese nt. Not Available [facility] (Lab) [address], [place], [address], 11/15/2024 09:55:48 11/15/1911/14/2024 CBC W/DIF F absolute neutrophils 7.0 10'3/ uL 1.5-8. [address] [facility] (Lab) [address], [place], [address], 11/15/2024 09:55:48 11/15/1911/14/2024 CBC W/DIF F absolute lymphocytes 1.2 10'3/ uL 1.0-4. [address] [facility] (Lab) [address], [place], [address], 11/15/2024 09:55:48 11/15/1911/14/2024 CBC W/DIF F absolute monocytes 0.5 10'3/ uL 0.2-1. [address] [facility] (Lab) [address] [facility], [place], [address], 11/15/2024 09:55:48 11/15/1911/14/2024 CBC W/DIF F absolute eosinophils 0.1 10'3/ uL 0.0-0. [address] [facility] (Lab) [address] [facility], [place], [address], 11/15/2024 09:55:48 11/15/1911/14/2024 CBC W/DIF F absolute basophils 0.0 10'3/ uL 0.0-0. [address] [facility] (Lab) [address] [facility], [place], [address], 11/15/2024 09:55:48 11/15/1911/14/2024 CBC W/DIF F absolute immature granulocytes 0.0 10'3/ uL 0.00-0 .10 Refer ence range s for nonbi nary/ inter sex or unspe cifie d gende r patie nts have not been estab lishe d. Pleas e refer [facility] for range s estab lishe d for cisge nder patie nts and evalu ate in the clini mildred xavier xt of the indiv idual patie nt: https ://mary kay foster book. nm.or g/gen derx Not Available [facility] (Lab) [address] [facility], [place], [address], 11/15/2024 09:55:48 11/15/1911/14/2024 HEPAT ITIS B SURFA CE ANTIG EN hepatitis B surface antigen Non-re active non-re active This assay was perfo rmed using [employer] ratio n reage nts and test kits. Value s obtai christine with other assay metho ds or kits canno t be used inter laughlin eably . Not Available [facility] (Lab) [address] [facility], [place], [address], 11/15/2024 09:55:48 11/15/1911/14/2024 HIV 1/2 ANTIG EN/AN TIBOD Y, REFLE X CONFI RMATI ON HIV antigen/anti body Nonrea ctive nonrea ctive HIV-1 antig en and HIV-1 /HIV- 2 antib odies were not detec henry. No labor atory evide nce of HIV infec tion. Not Available [facility] (Lab) [address] [facility], [place], [address], 11/15/2024 09:55:49 11/15/1911/14/2024 HEPAT ITIS C ANTIB MARGARITA SCREE N, REFLE X TO CONFI RMATI ON hepatitis C antibody Non-re active non-re active Antib odies to HCV Not Detec henry, does not exclu de the possi bilit y of expos ure to HCV. Not Available [facility] (Lab) [address] [facility], [place], [address], 11/15/2024 09:55:49 11/15/1911/14/2024 RUBEL LA IGG ANTIB MARGARITA, QUANT rubella antibodies, IgG Reacti ve reacti ve Not Available [facility] (Lab) [address] [facility], [place], [address], 11/15/2024 09:55:50 11/15/1911/14/2024 RUBEL LA IGG ANTIB MARGARITA, QUANT rubella antibodies, IgG quant 17.5 IU/mL >=10 Non-r eacti ve (Non- Immun e) <10 IU/mL React pat (Immu ne) > or = 10 IU/mL Not Available [facility] (Lab) [address] [facility], [place], [address], 11/15/2024 09:55:50 11/15/1911/14/2024 HEMOG LOBIN A1C hemoglobin [...] >8.0% Actio n sugge sted Not Available [facility] (Lab) [address], [place], [address], 11/15/2024 09:55:50 11/15/1911/14/2024 TYPE/ RH/SC REEN ABO/Rh type A NEG Not Available [facility] (Lab) [address], [place], [address], 11/15/2024 09:55:50 11/15/19 25 11/14/2024 TYPE/ RH/SC REEN antibody screen NEG Not Available [facility] (Lab) [address] [facility], [place], [address], 11/15/2024 09:55:50 11/15/19 25 11/14/2024 TYPE/ RH/SC REEN exp date 2024 23:[address] [facility] (Lab) [address], [place], [address], 11/15/2024 09:55:50 11/15/19 25 11/14/2024 RPR SCREE N, REFLE X TITER /CONF IRMAT ION RPR qualitative Nonrea ctive nonrea ctive Not Available [facility] (Lab) [address], [place], [address], 11/15/2024 09:55:51 10/02/19 25 10/02/2024 US, obste tric, nucha l trans lucen cy No observ ation record ed. [email or web address] [facility] [address], [place], [address], 10/02/2024 13:10:46 10/02/19 25 10/02/2024 US, obste tric, 1st trime ster No observ ation record ed. [email or web address] [facility] [address], [place], [address], 10/02/2024 13:10:55 10/02/19 25 10/01/2024 US, obste tric, nucha l trans lucen cy No observ ation record ed. Marly [address], [place], [address], 10/05/2024 09:46:48 11/27/19 25 11/26/2024 US, obste tric, 2nd or 3rd trime ster No observ ation record ed. [email or web address] [facility] [address], [place], [address], 11/26/2024 18:13:04 11/27/19 25 11/26/2024 US, obste tric, 2nd or 3rd trime ster No observ ation record ed. [email or web address] [address], [place], [address], 11/26/2024 18:15:16 11/27/19 25 11/26/2024 US, obste tric, 2nd or 3rd trime ster No observ ation record ed. Marly [address], [place], [address], 11/27/2024 21:27:34 12/25/1912/24/2024 US, obste tric, follo w-up No observ ation record ed. [email or web address] [facility] [address], [place], [address], 12/24/2024 12:42:38 12/25/19 25 12/24/2024 US, obste tric, follo w-up No observ ation record ed. [email or web address] [address] [address], [place], [address], 12/25/2024 12:27:01 Result Notes None recorded. Problems Name Problem SNOMED Code Status Onset Date Resolution Date Notes Provider Name and Address Organization Details Recorded Time 87918356 Active [facility] 17:34:37 Congenita l pyloric stenosis 170174636 Active 2024 s/p repair KIRAN BUNDY MD [address], [place], [address], [facility] 17:52:32 Problem Notes None recorded. Procedures Surgical History Date Name Laterality Status Provider Name and Address Organization Details Recorded Time 10/18/19 24 Date of Last Pap Smear completed DAYRON Calles [facility] 10/01/2024 17:34:02 03/14/19 15 Orthopedic Surgery completed Zoya Ward [facility] 10/13/2023 09:42:07 03/14/19 09 Tonsillectomy completed Zoyaheber Ward [facility] 10/13/2023 09:42:00 10/13/19 03 dilation of pyloric stricture completed LENNY Butt [address], [place], [address], [facility] 10/13/2023 10:02:07 Imaging Results None recorded. Procedure Notes None recorded. Medical Equipment None Reported. Allergies Allergen ID Allergen Name Allergen Category Reaction Reaction Severity Criticality Documentation Date Start Date Code Code System Note Provider Name and Address Organization Details Recorded Time 59683 cat's claw preparati on medicatio n eye redness mild Not available 08/01/2024 36569 3 RxNorm Phoebe dejesus [facility] 09:15:09 Medications Name Sig Start [...] Updated DateTime 12/24/2024 157.48 cm 31.6 kg/m2 33016.48 g 110/73 mm[Hg] Kristina Pranay [facility] 12/24/2024 12:01:51 Social History Question Answer Notes LastModified by Organizat ion Details LastModified Time Tobacco Smoking Status Never Smoker Phoebe Meyers anjelica, [facility] 08/01/2024 09:18:14 Do You Have An Advance Directive? No [email or web address] Information n ot available 08/01/2024 Are You Blind Or Do You Have Difficulty Seeing? No Information n ot available 10/13/2023 What Is Your Level Of Caffeine Consumption? Occasional [email or web address] Information not available 09/03/2024 How Much Tobacco Do You Chew? None [email or web address] Information not available 10/13/2023 In The 14 Days Before Symptom Onset, Have You Had Close Contact With A Laboratory-confirm ed COVID-19 While That Case Was Ill? No [email or web address] Information n ot available 10/13/2023 In The [...] Type Of Diet Are You Following? REGULAR [email or web address] Information n ot available 10/13/2023 What Is The Highest Grade Or Level Of School You Have Completed Or The Highest Degree You Have Received? [id number] [email or web address] Information not available 08/01/2024 Are There Any Guns Present In Your Home? Yes [email or web address] Information not available 10/01/2024 Do You Use Protection During Sex? Usually [email or web address] Information not available 08/01/2024 Do You Use Your Seat Belt Or Car Seat Routinely? Yes [email or web address] Information not available 10/13/2023 Do You Have Smoke And Carbon Monoxide Detectors In Your Home? Yes Information not available 10/13/2023 How Much Tobacco Do You Smoke? No [email or web address] Information not available 10/13/2023 Do You Use Sunscreen Routinely? Yes [email or web address] Information not available 10/13/2023 Have You Used IV Drugs? No Information not available 10/13/2023 Do You Have Difficulty Walking Or Climbing Stairs? No [email or web address] Information not available 10/13/2023 Sex: Unknown Functional Status Question Answer Note LastModified by Organizat ion Details LastModified Time Do you use any illicit or recreational drugs? No [email or web address] Information not available 10/13/2023 What is your level of alcohol consumption? None [email or web address] Information not available 10/13/2023 Are you able to walk independently without assistance or assistive devices? YESWOREST [email or web address] Information not available 10/13/2023 Are you able to care for yourself independently? 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 No [email or web address] Information not available 10/13/2023 What is your exercise level? Moderate Information not available 10/13/2023 Mental Status Question Answer Note LastModified by Organization D etails LastModified Time Do you feel stressed (tense, restless, nervous, or anxious, or unable to sleep at night)? [id number] [email or web address] Information not available 10/01/2024 Family History Relationship Description Onset Age of this Age Resolved Age Notes LastModified by Organization Details LastModified Time Mother Polycystic ovary syndrome [email or web address] Not available 2023 09:40:21 Medical History Condition [...] ICD10 Code Diagnosis IMO Codes Diagnosis Note [id number] KIRAN BUNDY MD [facility] [address] [address] 11/26/2024 15:59:04 11/26/2024 17:15:19 screening for malformation 475705730 Z36.3 Z3A.20 [id number] KIRAN BUNDY MD [facility] [address],[facility] [place] [address] 11/26/2024 16:00:34 11/26/2024 17:45:52 Second trimester 38556072 Z34.02 [id number] Slim Galloway MD [facility] [address] [address] 12/24/2024 10:58:33 12/24/2024 11:43:11 Follow-up encounter 664975534 Z36.2 Z3A.24 [id number] Slim Galloway MD [facility] [address] [address] 12/24/2024 10:59:57 12/24/2024 12:26:33 Second trimester 11574837 Z34.02 [id number] Health Concerns Section Related Observation LastModified by Organization Detai ls LastModified Time None Recorded Concern Status LastModified by Organization Details LastModified Time None Recorded Payers Encounter Date Sequence Insurance Name Policy Number Policy Godinez Covered Member ID Godinez Member ID Guarantor Name 12/24/2024 1 [place] [id number] Richard Almonte [id number] Phoebe Almonte Notes Date Note Type Note Provider Name and Address Organization Details Recorded Time 12/24/2024 text/html Generic HPI TemplateReported by Patient Slim Galloway MD [address], [place], [address], [facility] 12/24/2024 12:26:05 OBGyn Episode Ob Episode Information Episode Created Date Number of Fetuses Patient Bloodtype Patient rh Status Prepregnancy Weight lbs Domestic Partner Domestic Partner Phone Father Name Grants Manager Status 10/02/19 25 1 A Negative OPEN Fetus Data First Name Last Name Admitted to NICU Weight (g) Sex Living Outcome Pediatric Complications Fetus ID Race Codes Race Delivery Type [id number] Problems Problem Notes Problem Name Start Date End Date Resolution Snomed Code Not e Congenital pyloric stenosis 10/01/2024 [id number] s/p re pair Jason Calculation Initial Jason [...] Date Ultra Sound Latest Days Gestation 0 [email or web address] 10/01/2024 04/13/19 26 0 Pre-dana Flowsheet Flowsheet [...] Weight in lbs Pre/Post Dialysis Refused Weight 155.831925787871 BP Diastolic BP Location Tested BP Systolic BP Type 66 L arm 99 sitting Fetus Heart Rate Present A Present Fetus Movement Comments Patient presents to [facility] care. Hx of pyloric stenosis repair [...] Weight in lbs Pre/Post Dialysis Refused Weight 164.973568677694 BP Diastolic BP Location Tested BP Systolic [...] Type Weight in lbs Pre/Post Dialysis Refused 165.634772569669 BP Diastolic BP Location Tested BP Systolic [...] Weight in lbs Pre/Post Dialysis Refused Weight 173.947237896066 BP Diastolic BP Location Tested BP Systolic [...] Type Weight in lbs Pre/Post Dialysis Refused 175.557868807155 BP Diastolic BP Location Tested BP Systolic [...] Weight in lbs Pre/Post Dialysis Refused Weight 181.589646810989 BP Diastolic BP Location Tested BP Systolic [...]
--- NOTE | 2025-02-17 12:14 | ECG_ITS ---
Test Date: 2025-02-17 12:19:46 Measurements Intervals [place] Rate: 115 P: 46 NC: 137 QRS: 44 QRSD: 74 T: -5 QT: 270 QTc: 374 Interpretive Statements SINUS TACHYCARDIA CONSIDER INFERIOR INFARCT, AGE INDETERMINATE NONSPECIFIC T-WAVE ABNORMALITY- ANTERIOR LEADS ABNORMAL ECG No previous ECG available for comparison Electronically Signed On 02-17-2025 19:31:18 [employer]ATH[employer] by Patel Hickman D.O.
[2025-02-17 12:27] LABS: Hematocrit 31.7 % (37.0-47.0); Hemoglobin 10.6 g/dL (12.0-15.0); Immature Granulocyte Percent A 1.3 % (0-0.5); Lymphocytes Absolute Auto 1.73 K/mm3 (0.9-3.2); Mean Corpuscular HGB Conc 33.4 g/dl (32-36); Mean Corpuscular Hemoglobin 31.2 pg (26-34); Mean Corpuscular Volume 93.2 fl (80-100); Nucleated Red Blood Cells Absolute Auto 0.000 K/mm3 (0.0-0.012); Nucleated Red Blood Cells Perc 0.0 % (0.0-0.2); Platelet Count Result 240 k/mm3 (150-375); Red Blood Count 3.40 M/mm3 (4.2-5.4); White Blood Count 12.6 K/mm3 (4.5-10.0)
[2025-02-17 12:38] LABS: INR 1.0; Prothrombin Time 13.5 Seconds (11.1-14.7)
[2025-02-17 12:39] LABS: Partial Thromboplastin Time 25.7 Seconds (22.3-36.8)
[2025-02-17 12:44] LABS: Alanine Aminotransferase 30 U/L (6-35); Albumin Level 4.1 g/dL (3.5-5.1); Alkaline Phosphatase 116 U/L (38-126); Anion Gap 7 mmol/L (4-12); Aspartate Amino Transferase 31 U/L (14-36); Bilirubin,Total 0.3 mg/dL (0.2-1.3); Blood Urea Nitrogen 8 mg/dL (7-17); Calcium 9.4 mg/dL (8.4-10.2); Carbon Dioxide 20 mmol/L (22-30); Chloride 107 mmol/L (98-107); Estimated Glomerular Filt Rate > 60; Glucose 88 mg/dL (65-110); Lipase 55 U/L (23-300); Potassium 3.6 mmol/L (3.4-5.0); Sodium 134 mmol/L (137-145); Total Protein 7.2 g/dL (6.3-8.2)
[2025-02-17] MEDS: LACTATED RINGERS 1,000 ML 999 ML IV CONT (12:49)
[2025-02-17 12:51] LABS: Troponin I < 0.012 ng/mL (0.000-0.034)
--- NOTE | 2025-02-17 15:09 | ED.CHESTPAIN ---
HPI - Chest Pain General Chief Complaint: Chest Pain Stated Complaint: CP, SOB, dizziness, 32 weeks preg. Time Seen by Provider: 02/17/25 12:41 History of Present Illness HPI narrative: Patient at 32wk was at [facility] earlier, it was very crowded and hot, 78 degrees, she started feeling very warm, felt some palpitations and, lightheadedness in nausea, some trouble breathing, for the time she arrived here he got some fluids from EMS, she feels much better. No longer having symptoms. Noticed that her heart rate on her Apple watch had gone up to 120. Related Data Home Medications ?Medication ?Instructions ?Recorded ?Confirmed ?Last Taken ?Type ascorbate calcium (vitamin C) 500 500 mg PO DAILY 12/04/19 10/20/21 Unknown History mg tablet cetirizine 10 mg capsule (Zyrtec) 10 mg PO DAILY 12/04/19 10/20/21 Unknown History multivitamin with iron (Daily 1 tablet PO DAILY 12/04/19 10/20/21 Unknown History Vites/Iron tablet) vitamin B complex (B 1 tablet PO DAILY 12/04/19 10/20/21 Unknown History Complex-Vitamin B12 tablet) ferrous sulfate 325 mg (65 mg 325 mg PO 10/20/21 10/20/21 Unknown History iron) tablet Allergies Allergy/AdvReac Type Severity Reaction Status Date / Time nickel Allergy Unknown Unknown Verified 10/20/21 10:02 CATS Allergy Intermediate eyes swell Uncoded 10/20/21 10:02 sneezes Review of Systems Review of Systems: All systems reviewed & are unremarkable except as noted in HPI and below PMFSH Past Medical History Medical History Congenital pyloric stenosis Nausea Social History Social History Smoking status: Never smoker Alcohol intake: never Substance use: never Exam Narrative: EXAMINATION OF ORGAN SYSTEMS/BODY AREAS: Constitutional: Vital signs per nursing GENERAL:[No acute distress, non-toxic appearing.] HEAD: Normal with no signs of head trauma. EYES: EOMI, conjunctiva normal ENT: Hearing grossly intact LUNGS: Nonlabored breathing. Clear to auscultation bilaterally HEART: [Regular rate and rhythm] ABD: [Soft], [nontender to palpation] EXT: Normal range of motion; no swelling to either extremity or tenderness SKIN: [No rashes or lesions.] NEURO: [Alert. No gross focal sensory or strength deficits.] PSYCH: Normal affect Course Vital Signs Vital signs: Vital Signs Temperature 97.6 F 02/17/25 12:19 Pulse Rate 115 H 02/17/25 12:19 Respiratory Rate 16 02/17/25 12:19 Blood Pressure 112/76 02/17/25 12:19 Pulse Oximetry 100 02/17/25 12:19 Temperature 97.6 F 02/17/25 12:19 Pulse Rate 98 02/17/25 14:07 Respiratory Rate 16 02/17/25 14:07 Blood Pressure 106/74 02/17/25 14:07 Pulse Oximetry 100 02/17/25 14:07 MDM MDM Narrative Medical decision making narrative: Patient 32 weeks presenting here with episode of feeling overheated, with palpitations, shortness of breath, lightheadedness and nausea, now resolved after receiving IV fluids from EMS. On exam patient was initially slightly tachycardic but that has resolved, she is very well-appearing no distress, speaking full sentences, lungs clear to auscultation bilaterally, no leg swelling or tenderness. Chest x-ray on my independent interpretation does not show any acute abnormality, no pneumothorax or consolidation. EKG - 12-Lead: Performed at 1219. Interpreted by me. [Sinus rhythm]. Rate 115. [Normal] axis. TN-interval [normal]. QRS duration [normal]. QTc [normal]. [No ST segment elevation or depression]. [T-wave normal]. Impression: No EKG evidence of acute ischemia or dysrhythmia. Patient was initially also nervous about her baby, ultrasound performed by myself at bedside, heart rate 150, normal movements. She is reassured and tells me she is not feeling any symptoms currently. On reevaluation patient is feeling better, resting comfortably, vital signs now stable. D-dimer was slightly elevated however within acceptable limits by YEARS criteria. I did call her OBGYN, discussed findings with them, and plan, agreeable to follow her up in clinic in the next 2-3 days as scheduled. I do feel patient is stable for discharge home at this time with followup to their doctor, and return here if symptoms return or worsen. Agreeable to outpatient management. Differential Diagnosis Differential Diagnosis: Dehydration/presyncope, anxiety attack, arrhythmia, pneumonia, ACS, PE Lab Data 02/17/25 12:22 02/17/25 12:22 Labs: Lab Results 02/17/25 02/17/25 Range/Units 12:22 12:23 WBC 12.6 H (4.5-10.0) K/mm3 RBC 3.40 L (4.2-5.4) M/mm3 Hgb 10.6 L (12.0-15.0) g/dL Hct 31.7 L (37.0-47.0) % MCV 93.2 (80-100) fl MCH 31.2 (26-34) pg MCHC 33.4 (32-36) g/dl RDW 13.5 (11.5-14.5) % Plt Count 240 (150-375) k/mm3 MPV 10.4 (7.4-10.4) fl Immature Gran % (Auto) 1.3 H (0-0.5) % Neut % (Auto) 77.5 H (45.5-73.1) % Lymph % (Auto) 13.7 L (18.3-44.2) % Sutton % (Auto) 6.0 (2.6-8.5) % Eos % (Auto) 1.2 (0-4.4) % Baso % (Auto) 0.3 (0.2-1.2) % Lymph # (Auto) 1.73 (0.9-3.2) K/mm3 Sutton # (Auto) 0.8 H (0.1-0.6) K/mm3 Eos # (Auto) 0.2 (0-0.3) K/mm3 Baso # (Auto) 0.0 (0.0-0.1) K/mm3 Abs Immat Gran (auto) 0.17 H (0.00-0.031) K/mm3 Absolute Neuts (auto) 9.8 H (1.3-6.7) K/mm3 Absolute Nucleated RBC 0.000 (0.0-0.012) K/mm3 Nucleated RBC % 0.0 (0.0-0.2) % PT 13.5 (11.1-14.7) Seconds INR 1.0 APTT 25.7 (22.3-36.8) Seconds D-Dimer 0.68 H (<0.48) ug/mL Sodium 134 L (137-145) mmol/L Potassium 3.6 (3.4-5.0) mmol/L Chloride 107 (98-107) mmol/L Carbon Dioxide 20 L (22-30) mmol/L Anion Gap 7 (4-12) mmol/L BUN 8 (7-17) mg/dL Creatinine 0.46 L (0.7-1.0) mg/dL Estim Creat Clear Calc Not Reportable Estimated GFR > 60 (59 - ) Glucose 88 (65-110) mg/dL Calcium 9.4 (8.4-10.2) mg/dL Total Bilirubin 0.3 (0.2-1.3) mg/dL AST 31 (14-36) U/L ALT 30 (6-35) U/L Alkaline Phosphatase 116 (38-126) U/L Troponin I < 0.012 (0.000-0.034) ng/mL Total Protein 7.2 (6.3-8.2) g/dL Albumin 4.1 (3.5-5.1) g/dL Lipase 55 (23-300) U/L Imaging Data Radiologist's impression: ITS Impressions Chest X-Ray 02/17/25 12:41 IMPRESSION: 1. No acute cardiopulmonary findings. 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 If you start having chest pain or shortness of breath, lightheadedness or anything else concerning, please come back to the emergency room. Patient Language: Barbadian Prescriptions: No Action Zyrtec 10 mg capsule 10 mg PO DAILY multivitamin with iron [Daily Vites/Iron] Tablet 1 tablet PO DAILY vitamin B complex [B Complex-Vitamin B12] Tablet 1 tablet PO DAILY ascorbate calcium (vitamin C) 500 mg tablet 500 mg PO DAILY ferrous sulfate 325 mg (65 mg iron) tablet 325 mg PO famotidine [Pepcid] 20 mg tablet 20 mg PO DAILY Qty: 30 2RF Follow-up/Referrals: PHYSICIAN,[facility]AN[facility]AD [Primary Care Provider, Internal Medicine]
== END 2025-02-17 14:09 | disposition home or self-care (01) ==
PROVIDERS: Emergency Medicine; Emergency Provider Emergency Medicine
DX: O99.283 Endocrine, nutritional and metabolic diseases complicating pregnancy, third trimester (principal); E86.0 Dehydration; R07.89 Other chest pain; Z3A.32 32 weeks gestation of pregnancy
CPT/HCPCS: 36415; 71046; 80053; 83690; 84484; 85025; 85380; 85610; 85730; 93005; 96360; 99284; J7120